=== PATIENT | male | born 1965 ===

== ENCOUNTER 2017-06-12 06:22 | Emergency (ER) | payer MEDICAID ==
[2017-06-12 06:37] VITALS: BP 102/62; PULSE 69; RESP 16; TEMP 97.9; O2SAT 99
[2017-06-12] MEDS ORDERED: Lidocaine 5% Patch TD STA (07:02)
--- NOTE | 2017-06-12 07:40 | ED PDOC ---
HPI: Back Time Seen by Provider: 06/12/17 07:02 Chief Complaint (Nursing): Back Pain Chief Complaint (Provider): Back Pain History Per: Patient History/Exam Limitations: no limitations Onset/Duration Of Symptoms: Days (x1 month) Current Symptoms Are (Timing): Still Present Additional Complaint(s): Pt is a 51 y/o male with a past medical history of human immunodeficiency virus (HIV) who does not take medications for the virus and presents to the emergency department with a lower back pain x1 month. The pain radiates down to the right leg and is a 10 out of 10. Reports he has an appointment with his doctor on Jun 17 to reactivate his care and begin work-up on his health. Of note, patient went to [facility] and had MRI completed of his lower back approx 1 month ago. Doctors told him that he has " bone," so there is a questionable possibility of avascular necrosis. They also informed him that he has fungus in his esophagus (Esophagitis). Aleve helps his pain a little. Past Medical History Reviewed: Historical Data, Nursing Documentation, Vital Signs Vital Signs: Last Vital Signs Temp 97.9 F 06/12/17 06:34 Pulse 69 06/12/17 06:34 Resp 16 06/12/17 06:34 BP 102/62 06/12/17 06:34 Pulse Ox 99 06/12/17 06:34 - Medical History PMH: Back Problems, HIV Other PMH: Esophagitis - Family History Family History: States: No Known Family Hx - Social History Current smoker - smoking cessation education provided: Yes Alcohol: None Drugs: Denies - Home Medications Home Medications: Ambulatory Orders Medication Instructions Recorded Cyclobenzaprine [Cyclobenzaprine 10 mg PO TID #15 tab 06/14/17 HCl] traMADol [Ultram] 1 tab PO TID PRN #10 tab 06/14/17 Ibuprofen [Motrin] 1 tab PO Q8 PRN #30 tab 06/15/17 - Allergies Allergies/Adverse Reactions: Allergies Allergy/AdvReac Type Severity Reaction Status Date / Time No Known Allergies Allergy Verified 06/14/17 10:44 Review of Systems ROS Statement: Except As Marked, All Systems Reviewed And Found Negative Constitutional: Negative for: Fever Gastrointestinal: Negative for: Nausea, Vomiting Musculoskeletal: Positive for: Back Pain (Lower region), Leg Pain (Right) Physical Exam - Reviewed Nursing Documentation Reviewed: Yes Vital Signs Reviewed: Yes - Physical Exam Appears: Positive for: Non-toxic, No Acute Distress Head Exam: Positive for: ATRAUMATIC, NORMAL INSPECTION, NORMOCEPHALIC Skin: Positive for: Normal Color, Warm, Dry Eye Exam: Positive for: Normal appearance Neck: Positive for: Normal, Supple Cardiovascular/Chest: Positive for: Regular Rate, Rhythm. Negative for: Murmur Respiratory: Positive for: Normal Breath Sounds. Negative for: Accessory Muscle Use, Respiratory Distress Gastrointestinal/Abdominal: Positive for: Normal Exam, Bowel Sounds, Soft. Negative for: Tenderness Back: Positive for: Other (Tenderness to the right lower back and to the right hip. Pain with ROM of the right hip.). Negative for: Normal Inspection Extremity: Positive for: Normal ROM, Capillary Refill (Pulses intact.). Negative for: Other (no neurovascular deficits) Neurologic/Psych: Positive for: Alert, Oriented (x3). Negative for: Motor/ Sensory Deficits - ECG O2 Sat by Pulse Oximetry: 99 (RA) Pulse Ox Interpretation: Normal Medical Decision Making Medical Decision Making: Time: 07:02 Initial impression: Possible avascular necrosis (old) causing hip pain vs. musculoskeletal pain Initial plan: --Tylenol 975 mg PO --Motrin 600 mg PO --Lidocaine 5% 1 ea TD --Hip w/ pelvis x-ray --LS Spine x-ray --Reevaluation Time: 07:32 --Valium 5 mg PO Progress note(s): 9:13 AM -- Pt feels better. Will d/c home. Pt with appt with Dr. Zurita next week. Time: 09:14 Upon provider reevaluation patient is feeling better, is medically stable, and requires no further treatment in the ED at this time. Patient will be discharged home with Rx for Motrin and Ultram. Counseling was provided and all questions were answered regarding diagnosis and need for follow up with Dr. Pee Zurita MD. There is agreement to discharge plan. Return if symptoms persist or worsen. Clinical Impression: Back pain Time: 09:33 --Lumbar Spine x-ray FINDINGS: BONES: No evidence of acute compression fracture nor retropulsed fragments. Mild chronic anterior stature loss of the T12 and to a lesser degree L1 segments. . DISC SPACES: Mild degenerative spondylosis noted at the T11-T12 level with mild posterior disc space narrowing L5-S1 level. Small marginal anterior osteophyte formation seen at L3-L4 level. Facet joints also appear slightly hypertrophic L5-S1 through the L3-L4 level decreasing order of severity. OTHER FINDINGS: None. IMPRESSION: No acute fractures. Minor chronic anterior stature loss of the T12 and to a lesser degree L1 segments. Minor degenerative spondylosis Time: 09:35 --Hip x-ray FINDINGS: BONES: No evidence of acute displaced fracture nor dislocation. No definitive radiographic evidence of avascular necrosis however early avascular necrosis cannot be excluded and therefore follow-up MRI recommended. JOINTS: Joint spaces preserved. No significant osteoarthritis SOFT TISSUES: Normal. OTHER FINDINGS: None. IMPRESSION: No evidence of acute displaced fracture nor dislocation. No definitive evidence of avascular necrosis however the possibility of early avascular necrosis cannot be excluded therefore followup MRI recommended. Note that this report was placed in PA review folder for followup. Scribe Attestation: Documented by Karie Sun, acting as a scribe for Joseph Esquivel MD. Provider Scribe Attestation: All medical record entries made by the Scribe were at my direction and personally dictated by me. I have reviewed the chart and agree that the record accurately reflects my personal performance of the history, physical exam, medical decision making, and the department course for this patient. I have also personally directed, reviewed, and agree with the discharge instructions and disposition. Disposition - Clinical Impression Clinical Impression: Back pain - Patient ED Disposition Is Patient to be Admitted: No Counseled Patient/Family Regarding: Studies Performed, Diagnosis, Need For Followup, Rx Given - Disposition Referrals: Pee Zurita MD [Family Provider] - Disposition: Routine/Home Disposition Time: 09:14 Condition: IMPROVED Additional Instructions: Mr. Low, thank you for letting us take care of you today. Return to the ER if your symptoms worsen, or if any problems. Take the medication(s) listed below as prescribed. Follow up with Dr. Mooney next week--you already have an appointment. Instructions: Back Pain (ED) Forms: [employer] ([place]) Print Language: ITALIAN - POA Present On Arrival: None
--- NOTE | 2017-06-12 09:35 | RAD ---
PROCEDURE: Radiographs of the Lumbar Spine. HISTORY: Low back pain COMPARISON: No prior. FINDINGS: BONES: No evidence of acute compression fracture nor retropulsed fragments. Mild chronic anterior stature loss of the T12 and to a lesser degree L1 segments. . DISC SPACES: Mild degenerative spondylosis noted at the T11-T12 level with mild posterior disc space narrowing L5-S1 level. Small marginal anterior osteophyte formation seen at L3-L4 level. Facet joints also appear slightly hypertrophic L5-S1 through the L3-L4 level decreasing order of severity. OTHER FINDINGS: None. IMPRESSION: No acute fractures. Minor chronic anterior stature loss of the T12 and to a lesser degree L1 segments. Minor degenerative spondylosis
--- NOTE | 2017-06-12 09:37 | RAD ---
PROCEDURE: Right Hip Radiographs. HISTORY: Right hip pain; possible avascular necrosis of hip COMPARISON: None. FINDINGS: BONES: No evidence of acute displaced fracture nor dislocation. No definitive radiographic evidence of avascular necrosis however early avascular necrosis cannot be excluded and therefore follow-up MRI recommended. JOINTS: Joint spaces preserved. No significant osteoarthritis SOFT TISSUES: Normal. OTHER FINDINGS: None. IMPRESSION: No evidence of acute displaced fracture nor dislocation. No definitive evidence of avascular necrosis however the possibility of early avascular necrosis cannot be excluded therefore followup MRI recommended. Note that this report was placed in PA review folder for followup.
== END 2017-06-12 09:30 | disposition home or self-care (01) ==
LOC: H.ER 06:22
DX: M54.9 Dorsalgia, unspecified (principal)

== ENCOUNTER 2017-06-14 09:45 | Emergency (ER) | payer MEDICAID ==
[2017-06-14 10:47] VITALS: TEMP 98.2
--- NOTE | 2017-06-14 11:18 | ED PDOC ---
HPI: Back Time Seen by Provider: 06/14/17 10:55 Chief Complaint (Nursing): Back Pain History Per: Patient (was seen in the ED [address] Esquivel. He was discharged with ibuprofen and tramadol. He states that he lost his meds on the bus and needs refill. He has an appointment with Dr. Zurita in the ciinic in 3 days.) History/Exam Limitations: no limitations Current Symptoms Are (Timing): Still Present Past Medical History Reviewed: Historical Data, Nursing Documentation, Vital Signs Vital Signs: Last Vital Signs Temp 98.2 F 06/14/17 10:44 Pulse 71 06/14/17 10:44 Resp 18 06/14/17 10:44 BP 111/64 06/14/17 10:44 Pulse Ox 100 06/14/17 10:44 - Medical History PMH: Back Problems, HIV - Family History Family History: States: Unknown Family Hx - Home Medications Home Medications: Ambulatory Orders Medication Instructions Recorded Cyclobenzaprine [Cyclobenzaprine 10 mg PO TID #15 tab 06/14/17 HCl] Ibuprofen [Motrin] 1 tab PO Q8 PRN #30 tab 06/14/17 traMADol [Ultram] 1 tab PO TID PRN #10 tab 06/14/17 - Allergies Allergies/Adverse Reactions: Allergies Allergy/AdvReac Type Severity Reaction Status Date / Time No Known Allergies Allergy Verified 06/14/17 10:44 Review of Systems ROS Statement: Except As Marked, All Systems Reviewed And Found Negative Physical Exam - Reviewed Nursing Documentation Reviewed: Yes Vital Signs Reviewed: Yes - Physical Exam Appears: Positive for: Well, Non-toxic, No Acute Distress Head Exam: Positive for: ATRAUMATIC, NORMAL INSPECTION, NORMOCEPHALIC Skin: Positive for: Normal Color, Warm, DRY Eye Exam: Positive for: EOMI, Normal appearance, PERRL ENT: Positive for: Normal ENT Inspection Neck: Positive for: Normal, Painless ROM Cardiovascular/Chest: Positive for: Regular Rate, Rhythm Respiratory: Positive for: CNT, Normal Breath Sounds Gastrointestinal/Abdominal: Positive for: Normal Exam, Bowel Sounds, Soft Back: Positive for: Normal Inspection, Other (pain on ROM). Negative for: Vertebral Tenderness Extremity: Positive for: Normal ROM Neurologic/Psych: Positive for: Alert, Oriented - ECG O2 Sat by Pulse Oximetry: 100 Medical Decision Making Medical Decision Making: VALERIE MACHINE CAGE [employer]KER reviewed. He was only prescribe 10 tabs. Will refill meds and discharge and add muscle relaxant Disposition - Clinical Impression Clinical Impression: Acute back pain - Patient ED Disposition Is Patient to be Admitted: No Doctor Will See Patient In The: Office Counseled Patient/Family Regarding: Diagnosis, Need For Followup, Rx Given - Disposition Referrals: Pee Zurita MD [Family Provider] - Disposition: Routine/Home Disposition Time: 11:00 Condition: STABLE Prescriptions: Cyclobenzaprine [Cyclobenzaprine HCl] 10 mg PO TID #15 tab Ibuprofen [Motrin] 1 tab PO Q8 PRN #30 tab PRN Reason: Pain, Moderate (4-7) traMADol [Ultram] 1 tab PO TID PRN #10 tab PRN Reason: Pain, Severe (8-10) Instructions: Back Pain (ED) Forms: [facility] (Yoruba) - POA Present On Arrival: None
[2017-06-14 11:45] VITALS: BP 134/75; PULSE 75; RESP 16; O2SAT 98
== END 2017-06-14 11:45 | disposition home or self-care (01) ==
LOC: H.ER 09:45
DX: M54.9 Dorsalgia, unspecified (principal); B20 Human immunodeficiency virus [HIV] disease; Z76.0 Encounter for issue of repeat prescription

== ENCOUNTER 2017-06-15 09:05 | Emergency (ER) | payer MEDICAID ==
[2017-06-15 09:10] VITALS: BP 106/63; PULSE 78; TEMP 97; O2SAT 100
[2017-06-15 09:11] VITALS: BMI 23.1
[2017-06-15] MEDS ORDERED: Oxycodone/Acetaminophen 5/325 mg Tab PO ONE (09:27)
[2017-06-15] MEDS ORDERED: Oxycodone/Acetaminophen 5/325 mg Tab ONE (09:40)
--- NOTE | 2017-06-15 10:24 | ED PDOC ---
HPI: Back Time Seen by Provider: 06/15/17 09:16 Chief Complaint (Nursing): Back Pain Chief Complaint (Provider): Back Pain History Per: Patient History/Exam Limitations: no limitations Onset/Duration Of Symptoms: Days (x30) Current Symptoms Are (Timing): Still Present Additional Complaint(s): Enrike Low is a 51 year old male with a past medical history of HIV presenting to the ED for and evaluation of chronic lower back pain occurring for 1 month. The patient states his back pain worsens with ambulation and radiates to his right upper leg. He denies trauma, fever, weakness, numbness, urinary problems, any history of herniated discs, any history of cancer, or any IV drug use. The patient has been seen yesterday and three days ago in this ED for the same complaint. On his first visit, the patient was prescribed Ibuprofen and Flexeril then claimed that he lost these prescriptions. On his second visit, the patient was prescribed Tramadol in addition to Ibuprofen and Flexeril and now claims that he lost these prescriptions. He denies any other medical complaints. PMD: Pee Messina MD Past Medical History Reviewed: Historical Data, Nursing Documentation, Vital Signs Vital Signs: Last Vital Signs Temp 97 F L 06/15/17 09:09 Pulse 78 06/15/17 09:09 Resp BP 106/63 06/15/17 09:09 Pulse Ox 100 06/15/17 09:09 - Medical History PMH: Back Problems, HIV - Family History Family History: States: Unknown Family Hx - Social History Current smoker - smoking cessation education provided: Yes Alcohol: Other Drugs: Denies - Home Medications Home Medications: Ambulatory Orders Medication Instructions Recorded Cyclobenzaprine [Cyclobenzaprine 10 mg PO TID #15 tab 06/14/17 HCl] traMADol [Ultram] 1 tab PO TID PRN #10 tab 06/14/17 Ibuprofen [Motrin] 1 tab PO Q8 PRN #30 tab 06/15/17 - Allergies Allergies/Adverse Reactions: Allergies Allergy/AdvReac Type Severity Reaction Status Date / Time No Known Allergies Allergy Verified 06/14/17 10:44 Review of Systems ROS Statement: Except As Marked, All Systems Reviewed And Found Negative Musculoskeletal: Positive for: Back Pain (radiating to right upper leg ) Physical Exam - Reviewed Nursing Documentation Reviewed: Yes Vital Signs Reviewed: Yes - Physical Exam Appears: Positive for: Well, Non-toxic, No Acute Distress Head Exam: Positive for: ATRAUMATIC, NORMAL INSPECTION, NORMOCEPHALIC Skin: Positive for: Normal Color, Warm, Dry Eye Exam: Positive for: EOMI, Normal appearance, PERRL Neck: Positive for: Normal, Painless ROM, Supple Cardiovascular/Chest: Positive for: Regular Rate, Rhythm, Chest Non Tender Respiratory: Positive for: Normal Breath Sounds. Negative for: Respiratory Distress Gastrointestinal/Abdominal: Positive for: Normal Exam, Bowel Sounds, Soft. Negative for: Tenderness Back: Positive for: Other (paraspinal tenderness in lower back) Extremity: Positive for: Normal ROM, Other (SLR positive). Negative for: Deformity Neurologic/Psych: Positive for: Alert, event sales manager II-XII (intact), Oriented, Gait ( steady). Negative for: Motor/Sensory Deficits - ECG O2 Sat by Pulse Oximetry: 100 (RA) Pulse Ox Interpretation: Normal - Progress Re-evaluation Time: 11:10 Condition: Re-examined, Improved Medical Decision Making Medical Decision Making: Time: 09:16 Impression: Back pain of chronic character Plan: * Percocet 5/325 mg Tab 1 tab PO * Toradol 30 mg IM * Reevaluation According to pts charts, the pt had an X-ray LS spine done 3 days prior to arrival resulting in no acute findings. Pt states he had an MRI done at [facility] within the last month and is not sure about his results. Scribe Attestation: Documented by Ya Bowling, acting as a scribe for Porsche Holt MD. Provider Scribe Attestation: All medical record entries made by the Scribe were at my direction and personally dictated by me. I have reviewed the chart and agree that the record accurately reflects my personal performance of the history, physical exam, medical decision making, and the department course for this patient. I have also personally directed, reviewed, and agree with the discharge instructions and disposition. Disposition - Clinical Impression Clinical Impression: Back pain Doctor Will See Patient In The: Office Counseled Patient/Family Regarding: Studies Performed, Diagnosis, Need For Followup - Disposition Referrals: Pee Messina MD [Family Provider] - Disposition: Routine/Home Disposition Time: 11:00 Condition: IMPROVED Additional Instructions: Take your medications as instructed. Follow up with your appointment with Dr Messina in 2 days. Prescriptions: Ibuprofen [Motrin] 1 tab PO Q8 PRN #30 tab PRN Reason: Pain, Moderate (4-7) Instructions: Back Pain (ED)
== END 2017-06-15 11:29 | disposition home or self-care (01) ==
LOC: H.ER 09:05
DX: M54.9 Dorsalgia, unspecified (principal); Z21 Asymptomatic human immunodeficiency virus [HIV] infection status
CPT/HCPCS: 96372; 99282; J1885

== ENCOUNTER 2017-06-23 06:58 | Emergency (ER) | payer MEDICAID ==
[2017-06-23 06:59] VITALS: BMI 23.1
[2017-06-23 07:33] VITALS: BP 126/87; PULSE 93; RESP 18; TEMP 98.2; O2SAT 100
--- NOTE | 2017-06-23 08:47 | ED PDOC ---
HPI: Back Time Seen by Provider: 06/23/17 08:04 Chief Complaint (Nursing): Lower Extremity Problem/Injury History Per: Patient History/Exam Limitations: no limitations Onset/Duration Of Symptoms: Gradual (3 to 4 months), Worse Since (yesterday) Current Symptoms Are (Timing): Still Present Quality Of Discomfort: Dull, Aching Severity: Mild Previous Symptoms: Back Pain Associated Symptoms: None Exacerbating Factor(s): Movement Additional History Per: Patient Additional Complaint(s): pt states right back pain radiating from right thigh up to right lower back for past couple of months. worse with movement and better with rest, no leg n/t/w. no bowel or bladder retention or incontinence. pt seen here last week 3 times aweith a neg xray, seen at [facility] last month and had a mri with " bone". sx worsening with mild relief with flexeril. Past Medical History Reviewed: Historical Data, Nursing Documentation, Vital Signs Vital Signs: Last Vital Signs Temp 98.2 F 06/23/17 07:27 Pulse 93 H 06/23/17 07:27 Resp 18 06/23/17 07:27 BP 126/87 06/23/17 07:27 Pulse Ox 100 06/23/17 07:27 - Medical History PMH: Back Problems, HIV (042.9) Denies: Chronic Kidney Disease - Family History Family History: States: Unknown Family Hx - Living Arrangements Living Arrangements: With Family - Social History Current smoker - smoking cessation education provided: No - Home Medications Home Medications: Ambulatory Orders Medication Instructions Recorded Cyclobenzaprine [Cyclobenzaprine 10 mg PO TID #15 tab 06/14/17 HCl] traMADol [Ultram] 1 tab PO TID PRN #10 tab 06/14/17 Ibuprofen [Motrin] 1 tab PO Q8 PRN #30 tab 06/15/17 Cyclobenzaprine [Flexeril] 5 mg PO TID PRN #20 tab 06/23/17 - Allergies Allergies/Adverse Reactions: Allergies Allergy/AdvReac Type Severity Reaction Status Date / Time No Known Allergies Allergy Verified 06/14/17 10:44 Review of Systems ROS Statement: Except As Marked, All Systems Reviewed And Found Negative Constitutional: Negative for: Fever, Chills Cardiovascular: Negative for: Chest Pain, Palpitations Respiratory: Negative for: Cough, Shortness of Breath Gastrointestinal: Negative for: Nausea, Vomiting, Abdominal Pain Genitourinary Male: Negative for: Dysuria, Frequency Musculoskeletal: Positive for: Back Pain. Negative for: Neck Pain, Hand Pain, Leg Pain Neurological: Negative for: Weakness, Numbness, Confusion, Altered Mental Status , Headache, Dizziness Physical Exam - Reviewed Nursing Documentation Reviewed: Yes Vital Signs Reviewed: Yes - Physical Exam Appears: Positive for: Uncomfortable Head Exam: Positive for: ATRAUMATIC, NORMAL INSPECTION, NORMOCEPHALIC Skin: Positive for: Normal Color, Warm, Dry Eye Exam: Positive for: Normal appearance Neck: Positive for: Normal, Painless ROM, Supple. Negative for: Decreased ROM, Limited ROM, Trachea Midline, Pain On Movement Of Neck Cardiovascular/Chest: Positive for: Regular Rate, Rhythm, Chest Non Tender. Negative for: Edema, Gallop, Murmur, Bradycardia, Tachycardia Respiratory: Positive for: Normal Breath Sounds. Negative for: Decreased Breath Sounds, Accessory Muscle Use, Crackles, Rales, Rhonchi, Stridor, Wheezing , Respiratory Distress Pulses-Post. Tibialis (L): 2+ Pulses-Post. Tibialis (R): 2+ Gastrointestinal/Abdominal: Positive for: Normal Exam, Bowel Sounds, Soft. Negative for: Tenderness Back: Positive for: Normal Inspection. Negative for: L CVA Tenderness, R CVA Tenderness Extremity: Positive for: Normal ROM. Negative for: Tenderness, Pedal Edema, Calf Tenderness, Deformity, Swelling Neurologic/Psych: Positive for: Alert, construction checker II-XII, Oriented, Mood/Affect (calm) , Other (+ ehl bl nml ankle reflexes, no saddles anesthesia). Negative for: Motor/Sensory Deficits - ECG O2 Sat by Pulse Oximetry: 100 Pulse Ox Interpretation: Normal - Progress ED Course And Treament: ct scan with mild degen mild to moderate spinal stenosis. sx improved with flexeril advise close f/u with pmd and in medical clinic. pt leaves ambulatory and in good spirits. Re-evaluation Time: 09:20 Condition: Improved Disposition - Clinical Impression Clinical Impression: Back pain - Patient ED Disposition Is Patient to be Admitted: No Counseled Patient/Family Regarding: Studies Performed, Diagnosis, Need For Followup - Disposition Referrals: Pee Messina MD [Primary Care Provider] - (2 to 3 days) Sona Graf MD [Staff Provider] - Disposition: Routine/Home Disposition Time: 09:20 Condition: GOOD Prescriptions: Cyclobenzaprine [Flexeril] 5 mg PO TID PRN #20 tab PRN Reason: Pain, Moderate (4-7) Instructions: Chronic Back Pain (ED) Forms: [facility] (Setswana)
--- NOTE | 2017-06-23 09:52 | CT ---
PROCEDURE: CT Lumbar Spine without contrast HISTORY: back pain neg xray recently COMPARISON: Lumbar spine radiograph 06/12/2017. TECHNIQUE: Axial computed tomography images were obtained of the lumbar spine without the use of intravenous contrast. Coronal and sagittal reformatted images were created and reviewed. Radiation dose: Total exam DLP = 412 mGy-cm. This CT exam was performed using one or more of the following dose reduction techniques: Automated exposure control, adjustment of the mA and/or kV according to patient size, and/or use of iterative reconstruction technique. FINDINGS: VERTEBRAE: Normal lumbar curvature is appreciated there is no displaced fracture or spondylolisthesis identified. No suspicious lytic or blastic change identified throughout the lumbar spine. Interval disc spaces are somewhat diminished in height L3-4 and L5-S1 are otherwise normal in height as well as vertebral bodies throughout. Prevertebral paraspinal soft tissues appear diffusely unremarkable. . DISCS/SPINAL CANAL/NEURAL FORAMINA: L1-2: Unremarkable. L2-3: Limited generalized disc bulge is appreciated with lateral recess stenosis resulting due to mild facet joint degenerative arthropathy in combination with disc bulging. Mild bilateral neural foraminal stenosis appreciated. L3-4: A generalized disc bulge combines with facet joint arthropathy to cause a mild to moderate central canal stenosis and moderate bilateral neural foraminal stenoses. L4-5: In additional generalized disc bulge combines with facet joint arthropathy to cause a mild central canal stenosis concentrated at the lateral recesses. Mild bilateral neural foraminal stenosis also identified. L5-S1: A moderate generalized disc bulge is appreciated with possible central disc protrusion inverting the ventral thecal sac without prominent stenosis. No large disc herniation appreciated throughout the exam. PARASPINAL SOFT TISSUES: A small right renal cyst is identified incidentally. OTHER FINDINGS: None. IMPRESSION: Multilevel degenerative central canal stenoses are identified seen worst at the L3-4 level where [id number] central canal stenosis results. No large disc herniation identified. A small center due disc protrusion may overlie generalized disc bulge at L5-S1 without significant stenosis resulting. Further characterization by MRI can provided if clinically warranted.
== END 2017-06-23 10:12 | disposition home or self-care (01) ==
LOC: H.ER 06:58
DX: M54.5 Low back pain (principal); M48.06 Spinal stenosis, lumbar region; B20 Human immunodeficiency virus [HIV] disease

== ENCOUNTER 2018-04-26 10:01 | Inpatient (IN) | payer MEDICAID ==
[2018-04-26 10:01] VITALS: BMI 23.1
[2018-04-26 10:30] VITALS: O2SAT 100
--- NOTE | 2018-04-26 11:10 | RAD ---
PROCEDURE: CHEST RADIOGRAPH, 1 VIEW HISTORY: SOB COMPARISON: None available. FINDINGS: LUNGS: Clear. PLEURA: No pneumothorax or pleural fluid seen. CARDIOVASCULAR: Normal. OSSEOUS STRUCTURES: No significant abnormalities. VISUALIZED UPPER ABDOMEN: Normal. OTHER FINDINGS: None. IMPRESSION: No focal airspace opacity. Please note that chest radiographs have low sensitivity for small pulmonary nodules. If indicated, chest CT should be obtained.
[2018-04-26 12:01] LABS: BASO % 0.3 % (0.0-2.0); EOS # 0.1 K/uL (0.0-0.7); EOS % 2.7 % (0.0-4.0); HEMOGLOBIN 12.7 g/dL (12.0-18.0); LYMPH # 0.5 K/uL (1.0-4.3); LYMPH % 16.1 % (20.0-40.0); MEAN CELL VOLUME 96.9 fl (80.0-94.0); MEAN CORPUSCULAR HEMOGLOBIN 33.3 pg (27.0-31.0); MEAN CORPUSCULAR HGB CONC 34.3 g/dL (33.0-37.0); MEAN PLATELET VOLUME 7.8 fl (7.2-11.7); MONO # 0.6 K/uL (0.0-0.8); MONO % 17.7 % (0.0-10.0); NEUT % 63.2 % (50.0-75.0); RBC 3.81 Mil/uL (4.40-5.90); RED CELL DISTRIBUTION WIDTH 13.6 % (11.5-14.5); WHITE BLOOD COUNT 3.2 K/uL (4.8-10.8)
--- NOTE | 2018-04-26 12:05 | ED PDOC ---
HPI: Psych/Substance Abuse Time Seen by Provider: 04/26/18 10:34 Chief Complaint (Nursing): Shortness Of Breath Chief Complaint (Provider): Psychiatric Evaluation History Per: Patient History/Exam Limitations: no limitations Onset/Duration Of Symptoms: Days Current Symptoms Are (Timing): Still Present Additional Complaint(s): 52 year old male with a history of pneumonia, HIV, depression and anxiety presents to the ED for psychiatric evaluation and shortness of breath with chills. Patient reports that he discontinued his HIV medications 8 months ago. He states he has been stressed because of his family and friends which has caused him to be unable to "eat or sleep well for months". Patient has also lost weight (160 to 133). He denies fever, cough, chest pain, abdominal pain, vomiting, SI, HI, or any other medical complaints. PMD: Dr. Messina Past Medical History Reviewed: Historical Data, Nursing Documentation, Vital Signs Vital Signs: Last Vital Signs Temp 98.1 F 04/26/18 10:29 Pulse 79 04/26/18 10:29 Resp 20 04/26/18 10:29 BP 104/69 04/26/18 10:29 Pulse Ox 100 04/26/18 10:29 - Medical History PMH: Back Problems, HIV (042.9) Denies: Chronic Kidney Disease - Surgical History Surgical History: No Surg Hx - Family History Family History: States: Unknown Family Hx - Home Medications Home Medications: Ambulatory Orders Medication Instructions Recorded Abacavir Sulfate/Lamivudine 1 tab PO DAILY 04/26/18 [Abacavir-Lamivudine 600-300 mg] Azithromycin [Zithromax] 1,200 mg PO SUN 04/26/18 Dolutegravir Sodium [Tivicay] 50 mg PO DAILY 04/26/18 Sulfamethoxazole/Trimethoprim 1 tab PO DAILY 04/26/18 [Bactrim DS Tab] - Allergies Allergies/Adverse Reactions: Allergies Allergy/AdvReac Type Severity Reaction Status Date / Time No Known Allergies Allergy Verified 04/26/18 10:36 Review of Systems ROS Statement: Except As Marked, All Systems Reviewed And Found Negative Psych: Positive for: Anxiety, Depression. Negative for: Suicidal ideation Physical Exam - Reviewed Nursing Documentation Reviewed: Yes Vital Signs Reviewed: Yes - Physical Exam Comments: GENERAL APPEARANCE: Patient is awake, alert, oriented x 3, in no acute distress. Speaking in full sentences, breathing easy and unlabored. SKIN: Warm, dry; (-) cyanosis HEAD: (-) scalp swelling, (-) scalp tenderness. EYES: (-) conjunctival pallor, (-) scleral icterus, (-) nystagmus. ENMT: Mucous membranes moist. Airway patent: (-) stridor. NECK: (-) tenderness, (-) stiffness, (-) lymphadenopathy. HEART AND CARDIOVASCULAR: (-) irregularity; (-) murmur, (-) gallop. CHEST AND RESPIRATORY: (-) rales, (-) rhonchi, (-) wheezes; breath sounds equal. ABDOMEN: Soft, (-) distention, (-) tenderness, (-) guarding. NEURO AND PSYCH: Mental status as above. Affect: flat detective private eye: Intact. Pupils equal and reactive; EOMI; (-) facial asymmetry ; tongue and uvula midline. Strength symmetric. - Laboratory Results Result Diagrams: 04/26/18 11:45 04/26/18 11:45 - ECG O2 Sat by Pulse Oximetry: 100 (RA) Pulse Ox Interpretation: Normal Medical Decision Making Medical Decision Making: Time: 10:40 Initial Plan: --EKG --Alcohol serum --CMP --Urine drug screen --Crisis evaluation --CBC with differentials --CXR --Urinalysis EKG : NSR at 68 bpm, no acute ST changes, as read by CLARY CXR : NAD, as read by CLARY Labs reviewed : WBC 3.2 Patient is medically cleared for psych evaluation. Patient seen and evaluated by crisis. After crisis evaluation, decision made for inpt psych admission as per Dr. Pyle for depression. Diagnostic results d/w the patient. Scribe Attestation: Documented by Robina Bowling, acting as a scribe for Josiane Blair PA-C Provider Scribe Attestation: All medical record entries made by the Scribe were at my direction and personally dictated by me. I have reviewed the chart and agree that the record accurately reflects my personal performance of the history, physical exam, medical decision making, and the department course for this patient. I have also personally directed, reviewed, and agree with the discharge instructions and disposition. Disposition - Clinical Impression Clinical Impression: Depression, Leukopenia, HIV (human immunodeficiency virus infection) - Patient ED Disposition Is Patient to be Admitted: Yes Counseled Patient/Family Regarding: Studies Performed, Diagnosis - Disposition Disposition Time: 12:30 Condition: STABLE - Pt Status Changed To: Hospital Disposition Of: Inpatient - Admit Certification Admit to Inpatient:: After my assessment, the patient will require hospitalization for at least two midnights. This is because of the severity of symptoms shown, intensity of services needed, and/or the medical risk in this patient being treated as an outpatient. - PA / [employer] / Resident Statement / has reviewed & agrees with the documentation as recorded.
[2018-04-26 12:12] LABS: ALB/GLOB RATIO 0.9 (1.0-2.1); ALBUMIN 3.9 g/dL (3.5-5.0); ALT/SGPT 28 U/L (21-72); AST/SGOT 34 U/L (17-59); BLOOD UREA NITROGEN 12 mg/dl (9-20); GFR AFRICAN-AMERICAN > 60; GFR NON-AFRICAN AMERICAN > 60
[2018-04-26 13:01] LABS: SQUAMOUS EPITHIAL < 1 /hpf (0-5); URINE BACTERIA RARE (<OCC); URINE BILIRUBIN NEGATIVE (NEGATIVE); URINE BLOOD NEGATIVE (NEGATIVE); URINE CLARITY SLIGHTY-CLOUDY (Clear); URINE COLOR YELLOW (YELLOW); URINE GLUCOSE (UA) NEG (Normal); URINE LEUKOCYTE ESTERASE NEG Leu/uL (Negative); URINE PROTEIN NEGATIVE (NEGATIVE); URINE UROBILINOGEN 0.2-1.0 mg/dL (0.2-1.0)
[2018-04-26] MEDS ORDERED: Magnesium Hydroxide Susp 30 ml UD PO PRN (13:10)
[2018-04-26] MEDS ORDERED: DiphenhydrAMINE 50 mg/ml Inj IM PRN (13:10)
[2018-04-26 13:20] LABS: BARBITURATES, UR NEGATIVE (NEGATIVE); BENZODIAZEPINES, UR NEGATIVE (NEGATIVE); OPIATES, UR NEGATIVE (NEGATIVE); PHENCYCLIDINE, UR NEGATIVE (NEGATIVE)
--- NOTE | 2018-04-26 17:25 | PCM.BM ---
Addendum entered and electronically signed by Aziza Santacruz MSW 05/05/18 15: 53: Treatment Plan Review - Problem Hopelessness/Helplessness Time Initiated: 17:00 Substance Use Time Initiated: 17:00 - Discharge / Continuing Care Discharge to:: Home Behavioral Health Services: Outpatient therapy (Bjorn Macedo [facility] ; [facility]) Health Needs: Doctor appointments, Medications/Rx, Other ([facility] ; [facility]) Original Note: <Farhad Gandhi - Last Filed: 04/26/18 17:23> Treatment Plan Problems - Problems identified on initial assessmt Hopelessness/Helplessness Date Initiated: 04/26/18 Time Initiated: 17:00 Assessment reference: NA Status: Active Substance Use Date Initiated: 04/26/18 Time Initiated: 17:00 Assessment reference: NA Status: Active Treatment assets and liabiliti Patient Assests: adapts well, cooperative, resourceful, ADL independent Patient Liabilities: poor support system, substance abuse, medical problems - Milieu Protocol Maintain good personal hygiene: every shift Encourage regular showers, every shift Remind patient to perform daily oral care, every shift Assist patient to perform ADL's Maintain personal safety: every shift Educate patient to report safety concerns to staff, every shift Monitor environment for contraband/sharps Medication safety: Monitor for expected outcome, potential side effects: every shift, Assess barriers to learning: every shift, Assess readiness for medication education: every shift <Denisha Pyle - Last Filed: 04/28/18 11:21> - Diagnosis (1) Substance induced mood disorder Status: Acute Interventions: Medication management, Individual and group therapy, Psychoeducation 04/28/18 11:21 (2) Cocaine abuse Status: Acute Interventions: Psychoeducation, Motivational interviewing 04/28/18 11:22 <Aziza Santacruz - Last Filed: 05/05/18 15:52> Treatment assets and liabiliti Patient Assests: cooperative (superficially cooperative-requires redirection and significant engagement from staff to actively participate in treatment), self-reliant, ADL independent, negotiates basic needs Patient Liabilities: live alone, poor support system, relationship conflicts, substance abuse, medical problems (inconsistantly adherent with HIV medications) Family Contact Family involvement: Patient does not wish Family/SO involvement Family contact: Patient declines to allow family contact at present - Outside Agency Agency 1 Agency contact name: TYRA Merritt) Agency contact number: ([phone]) - Goals for Treatment Patient goals for treatment: Patient to continue stabilization on 3NP through medication management and group/supportive therapy to address sxs of depression and eliminate SI. Patient to be encouraged to attend groups regularly to promote self-awareness, sobriety, and improve insight, compliance, coping skills and self-esteem. Patient to be provided with referral for appropriate level of aftercare to reduce risk of future hospitalizations and ensure safety in the community. Discharge/Continuing Care - Education Needs Education Needs: Patient Medication, Patient Diagnosis/Disease Process, Patient Coping Skills, Patient Anger Management skills, Patient Community resources, Patient Aftercare Safety Plan - Discharge Discharge Criteria: Tolerates medication w/o severe side effects, Free of Suicidal thoughts, Free of agitation, Normal sleep pattern, Ability to care for self, Reduction of target symptoms Discharge to:: Home - Treatment Team Participation Patient/Family/SO Statement: 04/28/18 12:34 Patient was invited to attend tx team this morning to discuss progress on 3NP, tx goals and discharge plan. Patient refused to attend despite max. prompts and engagement from staff. Pt. opted to remain in bed and responded to invitation with "This is why I signed that 48 hour notice." Patient to be seen in team at later time. Discussed with Family/SO: No Was Patient/Family/SO present at Treatment Team Meeting: No <Tracy Mcpherson - Last Filed: 05/06/18 09:54> - Diagnosis (1) Depression Status: Acute Interventions: psychotherapy, pharmacotherapy 05/06/18 09:53
--- NOTE | 2018-04-26 17:35 | PCM.PSYCH ---
Initial Psychiatric Evaluation - Initial Psychiatric Evaluation Chief Complaint (in patient's own words): came to emergency room seeking medical help because of concerns about decreased wt, decreased sleep, mulitple family stressors, fleeting thoughts without plan Patient's Reaction to Hospitalization: pt initially signed in voluntarily in emergency room upon arrival to [facility] pt requested to sign 48 hour notice as did not believe required psychiatric care. reports that given his health, multiple losses of friends at times would never take his life has never tried "only God can decide that". History of Present Illness and Precipitating Events: pt presented to [address] [facility] after self referral for concerns about decreased weight, decreased sleep, decreased appetite, stopping antiretroviral therapy (art's) approx 8 months ago-got tired taking meds wanted to take a break , was not admittedly an attempt to harmself. pt is pt of [facility]-last seen 07/[address] Zurita. pt 's last reported weight in 07/2017 was 151 lbs, today was 130.5lbs. pt is noted to have utox positive for cocaine. pt received instruction from primary staff as to significance of 48hour notice including possible screening by [facility] for possible involuntary commitment. pt was explained that [facility] has a grievance procedure and that a call center support representative from the psychiatric emergency workers from [facility] er would be up to discuss pt's reported experiences in er. pt was verbally agreeable to this plan. Current Medications: Active Medications Generic Name Dose Route Start Last Admin Trade Name Freq PRN Reason Stop Dose Admin Acetaminophen 650 mg 04/26/18 13:10 Tylenol 325mg Tab PO Q4 PRN Pain, moderate (4-7) Al Hydrox/Mg Hydrox/Simethicone 30 ml 04/26/18 13:10 Maalox Plus 30 Ml PO Q4 PRN Dyspepsia Diphenhydramine HCl 50 mg 04/26/18 13:10 Benadryl IM Q6 PRN Extrapyramidal S/S Unable PO Diphenhydramine HCl 50 mg 04/26/18 13:10 Benadryl PO Q6 PRN Extrapyramidal Symptoms Haloperidol 5 mg 04/26/18 13:10 Haldol PO Q4 PRN Agitation Haloperidol Lactate 5 mg 04/26/18 13:10 Haldol IM Q4 PRN Agitation, Unable to Take PO Lorazepam 2 mg 04/26/18 13:10 Ativan IM Q4 PRN Anxiety/Agitation,Unable PO Lorazepam 2 mg 04/26/18 13:10 Ativan PO Q4 PRN Anxiety/Agitation Magnesium Hydroxide 30 ml 04/26/18 13:10 Milk Of Magnesia PO HS PRN Constipation Past Psychiatric History - Past Psychiatric History Prior Professional Help: opd for depression Prior Psychiatric Treatment: [facility] History of ETOH/Drug Use: cocaine utox + History of Family Illness: denies Pertinent Medical Hx (Current Medical&Sleep Prob, Allergies): Allergies Allergy/AdvReac Type Severity Reaction Status Date / Time No Known Allergies Allergy Verified 04/26/18 10:36 Abacavir Sulfate/Lamivudine [Abacavir-Lamivudine 600-300 mg] 1 tab PO DAILY 07/06 Azithromycin [Zithromax] 1,200 mg PO SUN 04/26/18 Dolutegravir Sodium [Tivicay] 50 mg PO DAILY 04/26/18 Sulfamethoxazole/Trimethoprim [Bactrim DS Tab] 1 tab PO DAILY 04/26/18 Review of Systems - Review of Systems Review of Systems: pt is being treated at [facility]-seen by dr zurita, last seen july 2017 -hx of intermittent adherence pt team at [facility] - Constitutional Additional comments: decrease appetite - Respiratory Additional comments: has presented to er with sob cxr negative denies current sob fevers chills sweats diarrhea - Gastrointestinal Additional comments: intermittent constipation - Musculoskeletal Musculoskeletal: Muscle Weakness - Psychiatric Psychiatric: Abnormal Sleep Pattern, Irritability Additional comments: reports fleeting suicidal ideations as fleeting when at times overwhelmed denies any desire past or current to harm self Mental Status Examination - Affect Affect: Broad - Motor Activity Additional comments: some psychomotor excitation, change in position maintenance, some redirection with conversation as at times would over speak staff-was redirectable - Reliability in Providing Information Reliability in Providing Information: Fair - Speech Speech: Organized - Mood Additional comments: irritable at times - Formal Thought Process Formal Thought Process: No Impairment - Obsessions/Compulsions Obsessions: No Compulsions: No - Cognitive Functions Orientation: Person, Place, Situation, Time Sensorium: Alert Attention/Concentration: Attentive Judgement: Intact, as evidence by: Insight regarding need for hospitalization - Risk Risk: Diminished functioning Additional comments: related to possible underlying medical status related to reported 30 lbs weight loss over past 8 months - Strength & Assets Inventory Strength & Assets Inventory: Intelligence (questionable understanding of admission to psychiatry vs medicine) DSM 5 DX - DSM 5 DSM 5 Diagnosis: substance induced mood disorder b20 decreased weight non adherence with ART's Substance use: cocaine active - Recommended/Plan of Treatment Treatment Recommendations and Plan of Treatment: inpt milieu per attending vital signs and clinical observation per protocol and per clinical status prns per unit protocol family practice consult related to hx. of B20 and ART's pt received explaination from team related to 48 hour notice: up to 48 hours to ascertain if safe to discharge pt, if before 48 hrs (not later than 48hours) team must make clinical decision to have client evaluated by [facility] for possible involuntary commitment pt received explaination as to [facility] grievance procedure-call center support representative from psych crisis up to see pt at this time if medically necessary and pt psychiatrically stable pt may be transferred to medical floor Projected ELOS: 5-7 days Prognosis: guards Discharge Plan and Discharge Criteria: safety - Smoking Cessation Smoking Cessation Initiated: No Reason for not providing: pt defers
[2018-04-26] MEDS: Alum-Mag Hydrox-Simethicone Susp (30 mL) PO PRN ×2 (18:03→22:35)
--- NOTE | 2018-04-26 20:06 | CP.PCM.CON ---
History of Present Illness - History of Present Illness History of Present Illness: Family Medicine Consult note 52 y/o male with PMHx of HIV infection, Depression, anxiety presenyts to ED seeking medical help because of concerns about decreased weight loss, poor appetite, decreased sleep, multiple family stressors, fleeting thoughts without plan. Last time seen by Dr. Cervantes was on 07/27/17. Patient lost f/u , and has not been taken his HIV meds( ART) or any prophylaxis treatment for 8 months. He states that he found himself asking " why do I have to take this medications", lack of motivation in his life. But he decided to resume his HIV management because since January he has been having poor appetite, unintentional weight loss. During the interview mentioned a lot of financial issues. Denies fevers, chills, chest pain, SOB, cough, night sweats, abdominal pain, diarrheas, constipation, blood in urine of stools. Denies recent travel. Denies illicit drugs use, however tested positive for cocaine on admission. Reports wants medications for constipation, however reports he has daily bowel movements, but Would like to have 2 BMs daily. PMD: Dr. Zurita at [facility]. last seen on 07/27/18 Allergies: NKDA Social: smoker since age 14, unclear about how much he smokes, patient does not answer questions clearly. Etoh social. Denies illicits drugs. Positive for cocaine in Urine toxicology Review of Systems - Review of Systems All systems: reviewed and no additional remarkable complaints except (as per HPI ) Past Patient History - Past Social History Smoking Status: Heavy Smoker > 10 Cigarettes Daily - CARDIAC Hx Cardiac Disorders: No - PULMONARY Hx Tuberculosis: No - NEUROLOGICAL HX Cerebrovascular Accident: No Hx Seizures: No - HEENT Hx HEENT Problems: No - RENAL Hx Chronic Kidney Disease: No - ENDOCRINE/METABOLIC Hx Endocrine Disorders: No - HEMATOLOGICAL/ONCOLOGICAL Hx Human Immunodeficiency Virus (HIV): Yes (042.9) - INTEGUMENTARY Hx Dermatological Problems: No - MUSCULOSKELETAL/RHEUMATOLOGICAL Hx Musculoskeletal Disorders: No - GASTROINTESTINAL Hx Gastrointestinal Disorders: No - GENITOURINARY/GYNECOLOGICAL Hx Sexually Transmitted Disorders: No - PSYCHIATRIC Hx Substance Use: Yes - SURGICAL HISTORY Hx Surgeries: Yes Other/Comment: Neck Lymph Node surgery - ANESTHESIA Hx Anesthesia: No Meds Allergies/Adverse Reactions: Allergies Allergy/AdvReac Type Severity Reaction Status Date / Time No Known Allergies Allergy Verified 04/26/18 10:36 - Medications Medications: Current Medications Acetaminophen (Tylenol 325mg Tab) 650 mg PO Q4 PRN PRN Reason: Pain, moderate (4-7) Al Hydrox/Mg Hydrox/Simethicone (Maalox Plus 30 Ml) 30 ml PO Q4 PRN PRN Reason: Dyspepsia Last Admin: 04/26/18 18:03 Dose: 30 ml Diphenhydramine HCl (Benadryl) 50 mg IM Q6 PRN PRN Reason: Extrapyramidal S/S Unable PO Diphenhydramine HCl (Benadryl) 50 mg PO Q6 PRN PRN Reason: Extrapyramidal Symptoms Haloperidol (Haldol) 5 mg PO Q4 PRN PRN Reason: Agitation Haloperidol Lactate (Haldol) 5 mg IM Q4 PRN PRN Reason: Agitation, Unable to Take PO Lorazepam (Ativan) 2 mg IM Q4 PRN PRN Reason: Anxiety/Agitation,Unable PO Lorazepam (Ativan) 2 mg PO Q4 PRN PRN Reason: Anxiety/Agitation Magnesium Hydroxide (Milk Of Magnesia) 30 ml PO HS PRN PRN Reason: Constipation Physical Exam - Constitutional Appears: Non-toxic, No Acute Distress - Head Exam Head Exam: ATRAUMATIC, NORMOCEPHALIC - Eye Exam Eye Exam: Normal appearance. absent: Conjunctival injection Pupil Exam: PERRL - ENT Exam ENT Exam: Mucous Membranes Moist - Respiratory Exam Respiratory Exam: Clear to Auscultation Bilateral, NORMAL BREATHING PATTERN. absent: Accessory Muscle Use, Chest Wall Tenderness, Decreased Breath Sounds, Rales, Rhonchi, Wheezes, Respiratory Distress, Stridor - Cardiovascular Exam Cardiovascular Exam: REGULAR RHYTHM, +S1, +S2 - GI/Abdominal Exam GI & Abdominal Exam: Normal Bowel Sounds, Soft. absent: Distended, Guarding, Rebound, Rigid, Tenderness - Extremities Exam Extremities exam: Positive for: normal inspection. Negative for: calf tenderness, pedal edema - Back Exam Back exam: NORMAL INSPECTION. absent: CVA tenderness (L), CVA tenderness (R), paraspinal tenderness - Neurological Exam Neurological exam: Alert, Oriented x3 - Psychiatric Exam Psychiatric exam: Normal Affect, Normal Mood Additional comments: Talkative - Skin Skin Exam: Dry, Intact, Normal Color Results - Vital Signs Recent Vital Signs: Last Vital Signs Temp 97.5 F L 04/26/18 16:41 Pulse 81 04/26/18 16:41 Resp 18 04/26/18 16:41 BP 121/89 04/26/18 16:41 Pulse Ox 100 04/26/18 19:36 - Labs Result Diagrams: 04/26/18 11:45 04/26/18 11:45 Labs: Laboratory Results - last 24 hr 04/26/18 04/26/18 04/26/18 11:45 11:45 12:50 WBC 3.2 L RBC 3.81 L Hgb 12.7 Hct 36.9 MCV 96.9 H MCH 33.3 H MCHC 34.3 RDW 13.6 Plt Count 213 MPV 7.8 Neut % (Auto) 63.2 Lymph % (Auto) 16.1 L [place] % (Auto) 17.7 H Eos % (Auto) 2.7 Baso % (Auto) 0.3 Neut # (Auto) 2.0 Lymph # (Auto) 0.5 L [place] # (Auto) 0.6 Eos # (Auto) 0.1 Baso # (Auto) 0.0 Sodium 139 Potassium 4.2 Chloride 101 Carbon Dioxide 28 Anion Gap 14 BUN 12 Creatinine 0.8 Est GFR ( Amer) > 60 Est GFR (Non-Af Amer) > 60 Random Glucose 83 Calcium 9.0 Total Bilirubin 0.5 AST 34 ALT 28 Alkaline Phosphatase 85 Total Protein 8.2 Albumin 3.9 Globulin 4.3 H Albumin/Globulin Ratio 0.9 L Urine Color Urine Clarity Urine pH Ur Specific [place] Urine Protein Urine Glucose (UA) Urine Ketones Urine Blood Urine Nitrate Urine Bilirubin Urine Urobilinogen Ur Leukocyte Esterase Urine RBC (Auto) Urine Microscopic WBC Ur Squamous Epith Cells Urine Bacteria Urine Opiates Screen Negative Urine Methadone Screen Negative Ur Barbiturates Screen Negative Ur Phencyclidine Scrn Negative Ur Amphetamines Screen Negative U Benzodiazepines Scrn Negative U Oth Cocaine Metabols Positive H U Cannabinoids Screen Negative Alcohol, Quantitative < 10 04/26/18 12:50 WBC RBC Hgb Hct MCV MCH MCHC RDW Plt Count MPV Neut % (Auto) Lymph % (Auto) [place] % (Auto) Eos % (Auto) Baso % (Auto) Neut # (Auto) Lymph # (Auto) [place] # (Auto) Eos # (Auto) Baso # (Auto) Sodium Potassium Chloride Carbon Dioxide Anion Gap BUN Creatinine Est GFR ( Amer) Est GFR (Non-Af Amer) Random Glucose Calcium Total Bilirubin AST ALT Alkaline Phosphatase Total Protein Albumin Globulin Albumin/Globulin Ratio Urine Color Yellow Urine Clarity Slighty-cloudy Urine pH 7.0 Ur Specific [place] 1.020 Urine Protein Negative Urine Glucose (UA) Neg Urine Ketones Negative Urine Blood Negative Urine Nitrate Negative Urine Bilirubin Negative Urine Urobilinogen 0.2-1.0 Ur Leukocyte Esterase Neg Urine RBC (Auto) 2 Urine Microscopic WBC 1 Ur Squamous Epith Cells < 1 Urine Bacteria Rare Urine Opiates Screen Urine Methadone Screen Ur Barbiturates Screen Ur Phencyclidine Scrn Ur Amphetamines Screen U Benzodiazepines Scrn U Oth Cocaine Metabols U Cannabinoids Screen Alcohol, Quantitative Assessment & Plan - Assessment and Plan (Free Text) Assessment: 52 y/o male with PMHx of HIV infection, Depression, anxiety admitted to Psych unit to manage major depressive disorder. Plan: Depression -Psych unit -being managed by Psych HIV Infection -with h/o AIDS, CD4 count 41 -patient has not been taking any ARV's for 8 months -as per eCW last seen on 07/27/[address] Zurita -was taking Epzicom 600-300 mg -was taking Tivicay 50 mg -was on Azithromycin 1200 mg once a week -was on Bactrim DS 800-160 mg daily -last HIV viral load on 07/20/17 was 420 -last CD4 count 41 on 07/20/17 -f/u repeat HIV viral load, and CD4 count before we start ARV's -consider oportunistic infection prophylaxis based on CD4 count -pt is agreeable to resume her ARV's therapy -CXR on admission reported as clear lungs -noted on eCW HLA [id number] negative Weight loss -possible secondary to Depression, but also could be related to HIV infection as well -Pt states he has been stressed which has caused him to be unable to "eat or sleep well for months". -denies any other associated symptoms -will repeat HIV labs -CBC: unremarkable -CMP: WNL -UA WNL -CXR on admission reported as clear lungs -check Hep C ab. As per eCW had a HCV negative in the past -f/u TSH -f/u HgbA1C -consider Screening colonoscopy for Colon cancer as outpatient -has a h/o left side of neck lymph node removed on 2006. -will discuss malignancy work up with AM team and primary doctor, Dr. Zurita DVT prophylaxis -ambulating - Date & Time Date: 04/26/18 Time: 20:10
--- NOTE | 2018-04-26 20:59 | CARD ---
APPROVED REPORT EKG Measurement Heart [id number] <Conclusion> Normal sinus rhythm Normal ECG
--- NOTE | 2018-04-27 18:11 | CP.PCM.PN ---
Subjective - Date & Time of Evaluation Date of Evaluation: 04/27/18 Time of Evaluation: 08:15 - Subjective Subjective: Patient seen and examined, NAD, states feeling depressed since his parents , but denies any suiccidal thoughts, c/o of poor appetite, denies N/V /D, fever, chills, productive cough, SOB, chest pain. Objective - Vital Signs/Intake and Output Vital Signs (last 24 hours): Temp Pulse Resp BP Pulse Ox 97.8 F 87 18 133/73 100 04/27/18 16:37 04/27/18 16:37 04/27/18 16:37 04/27/18 16:37 04/26/18 19:36 - Medications Medications: Current Medications Acetaminophen (Tylenol 325mg Tab) 650 mg PO Q4 PRN PRN Reason: Pain, moderate (4-7) Al Hydrox/Mg Hydrox/Simethicone (Maalox Plus 30 Ml) 30 ml PO Q4 PRN PRN Reason: Dyspepsia Last Admin: 04/26/18 22:35 Dose: 30 ml Azithromycin (Zithromax) 1,600 mg PO QWK BACILIO PRN Reason: Protocol Diphenhydramine HCl (Benadryl) 50 mg IM Q6 PRN PRN Reason: Extrapyramidal S/S Unable PO Diphenhydramine HCl (Benadryl) 50 mg PO Q6 PRN PRN Reason: Extrapyramidal Symptoms Haloperidol (Haldol) 5 mg PO Q4 PRN PRN Reason: Agitation Haloperidol Lactate (Haldol) 5 mg IM Q4 PRN PRN Reason: Agitation, Unable to Take PO Lorazepam (Ativan) 2 mg IM Q4 PRN PRN Reason: Anxiety/Agitation,Unable PO Lorazepam (Ativan) 2 mg PO Q4 PRN PRN Reason: Anxiety/Agitation Magnesium Hydroxide (Milk Of Magnesia) 30 ml PO HS PRN PRN Reason: Constipation Trimethoprim/Sulfamethoxazole (Bactrim Ds Tab) 1 tab PO DAILY BACILIO PRN Reason: Protocol - Labs Labs: 04/26/18 11:45 04/26/18 11:45 - Constitutional Appears: No Acute Distress - Head Exam Head Exam: ATRAUMATIC, NORMOCEPHALIC - Eye Exam Eye Exam: EOMI, PERRL - ENT Exam ENT Exam: Mucous Membranes Moist Additional comments: white patches noted on tongue - Neck Exam Neck Exam: Full ROM. absent: Lymphadenopathy - Respiratory Exam Respiratory Exam: Clear to Ausculation Bilateral. absent: Wheezes - Cardiovascular Exam Cardiovascular Exam: REGULAR RHYTHM, +S1, +S2 - GI/Abdominal Exam GI & Abdominal Exam: Soft, Normal Bowel Sounds. absent: Organomegaly - Extremities Exam Extremities Exam: Full ROM. absent: Pedal Edema - Neurological Exam Neurological Exam: Alert, Awake, Normal Gait, Oriented x3 - Psychiatric Exam Psychiatric exam: Anxious, Depressed - Skin Skin Exam: Normal Color, Warm Assessment and Plan - Assessment and Plan (Free Text) Assessment: 52 y/o male with PMHx of HIV infection non-adherent to his ART, depression, anxiety admitted to Psych unit to manage major depressive disorder. Plan: Depression -Psych unit -being managed by Psych HIV Infection -with h/o AIDS, CD4 count 41 -patient has not been compliant with his ART drugs -as per eCW last seen on 07/27/[address] Zurita -was taking Epzicom 600-300 mg -was taking Tivicay 50 mg -was on Azithromycin 1200 mg once a week -was on Bactrim DS 800-160 mg daily -last HIV viral load on 07/20/17 was 420 -last CD4 count 41 on 07/20/17 -f/u repeat HIV viral load, and CD4 count before we start ARV's, pending results -consider oportunistic infection prophylaxis based on CD4 count Weight loss -possible secondary to Depression vs AIDS related -Patient states being stressed and feeling some sadeness since his parents -denies any other associated symptoms -f/u repeat HIV labs -CBC: wbc 3.2 -CMP:wnl -UA: Wnl -CXR on admission reported as clear lungs -Hep C ab: negative -TSH: pending reslts -HgbA1C: pending results -consider Screening colonoscopy for Colon cancer as outpatient DVT prophylaxis -pt is ambulatory
--- NOTE | 2018-04-27 18:40 | PCM.PYCHPN ---
Psychiatric Progress Note - Psychiatric Progress Note Patient seen today, length of contact: chart reviewed case discussed with team Patient Chief Complaint: reports that after being on unit and reportedly having interaction with unit staff is feeling more comfortable on unit. verbally states understands now that psychiatry is a branch of medicine. reports that will most likely rescind 48 hour notice. reports trouble sleeping as well as decreased mood. reports when not using cocaine is depressed. expresses interest in resuming medications for B20, requests information medication for sleep, appetite and mood. staff report that pt has been seen about unit, at times somewhat boisterous but redirectable. has been seen by family practice team related to B20. Problems Identified/Issues Discussed: alteration in mood alteration in sleep alteration in appetite alteration in coping alteration in immune function Medical Problems: per chart pt being followed by family practice Diagnostic Results: per psychiatry per medicine per nursing per psychotherapist social worker per recreational therapy DSM 5 Symptoms Update: depressed mood decreased appetite decreased sleep Medication Change: Yes (start mirtazepine 7.5mg po hs) Medical Record Reviewed: Yes Consults ordered or reviewed: pt being followed by family practice Mental Status Examination - Cognitive Function Orientation: Person, Place, Situation, Time Attention: WNL Concentration: WNL Association: WNL Fund of Knowledge: WN Decription of patient's judgement and insights: impaired - Affect Affect: Broad - Speech Additional comments: varied - Formal Thought Process Formal Thought Process: No Impairment - Homicidal Ideation Homicidal Ideation: No Goal/Treatment Plan - Goal/Treatment Plan Progress Toward Problem(s) and Goals/Treatment Plan: inpt milieu p vital signs and clinical observation per protocol and per clinical status prns per unit protocol family practice consult related to hx. of B20 and ART's pt received explaination from team related to 48 hour notice: up to 48 hours to ascertain if safe to discharge pt, if before 48 hrs (not later than 48hours) team must make clinical decision to have client evaluated by [facility] for possible involuntary commitment-pt expresses that will rescind 48 hour notice before tomorrow pt received explaination as to [facility] grievance procedure-pt reportedly visited by unit staff will start mirtazepine 7.5mg po hs pt to be given opportunity to rescind 48 hour notice will reassess accordingly at this time if medically necessary and pt psychiatrically stable pt may be transferred to medical floor Estimated Date of D/C: 04/29/18 If changed, why: deferred - Smoking Cessation Smoking Cessation Initiated: No Reason for not providing: deferred
[2018-04-28 09:14] LABS: T4 6.67 ug/dl (5.5-11.0)
[2018-04-28] MEDS: Tmp-Smz 800 mg-160 mg DS Tab PO SCH (09:23)
--- NOTE | 2018-04-28 11:50 | PCM.PYCHPN ---
Psychiatric Progress Note - Psychiatric Progress Note Patient Chief Complaint: "I have a headache, I don't want to talk." Problems Identified/Issues Discussed: Patient is irritable, refused to come to treatment team and currently refusing to engage in interview with repairer typewriter. He reports having a headache. He has been irritable towards several staff members. Medication Change: No Medical Record Reviewed: Yes Consults ordered or reviewed: Medicine consult Mental Status Examination - Cognitive Function Orientation: Person, Place, Situation, Time Memory: Intact Attention: WNL Concentration: WNL Association: WNL Fund of Knowledge: [facility] Decription of patient's judgement and insights: Poor I/J - Mood Mood: Depressed - Affect Affect: Blunted - Formal Thought Process Formal Thought Process: No Impairment - Suicidal Ideation Suicidal Ideation: No - Homicidal Ideation Homicidal Ideation: No Goal/Treatment Plan - Goal/Treatment Plan Need for Continued Stay: Remain at risks for inpatient hospitalization, Discharge may exacerbated symptoms Progress Toward Problem(s) and Goals/Treatment Plan: Substance Induced Mood Disorder; Cocaine Use Disorder -Individual and group therapy -Continue Remeron -Medicine consult -Psychoeducation -Disposition planning Estimated Date of D/C: 04/30/18
--- NOTE | 2018-04-29 09:36 | PCM.PYCHPN ---
Psychiatric Progress Note - Psychiatric Progress Note Patient seen today, length of contact: chart reviewed case discussed with team Patient Chief Complaint: pt reports feeling anxious and depressed and has decrease in appetite and weight and not able to sleep and has been more irritible .pt has agreed to rescind the 48 hr letter and agreed to take meds for depression and his HIV illness.pt denies suicidal ideation . Problems Identified/Issues Discussed: depression,anxiety and HIV illness Medication Change: Yes (increase remeron to 15 mg hs) Medical Record Reviewed: Yes Mental Status Examination - Cognitive Function Orientation: Person, Place, Situation, Time Memory: Intact Attention: WNL Concentration: WNL Association: WNL Fund of Knowledge: WNL - Mood Mood: Depressed - Affect Affect: Blunted - Formal Thought Process Formal Thought Process: No Impairment - Suicidal Ideation Suicidal Ideation: No - Homicidal Ideation Homicidal Ideation: No Goal/Treatment Plan - Goal/Treatment Plan Need for Continued Stay: Remain at risks for inpatient hospitalization, Discharge may exacerbated symptoms Progress Toward Problem(s) and Goals/Treatment Plan: A/P : major depression,recurrent r/o bipolar disorder mood disorder related to cocaine abuse cocaine abuse Plan : will increase remeron to 15 mg hs and add a mood stabilizer if mood remains irritible . will engage pt in therapy. Disposition planning when stable Estimated Date of D/C: 04/30/18
[2018-04-29] MEDS: Alum-Mag Hydrox-Simethicone Susp (30 mL) PO PRN (09:37)
[2018-04-29] MEDS: Tmp-Smz 800 mg-160 mg DS Tab PO SCH (11:23)
[2018-04-30] MEDS: Tmp-Smz 800 mg-160 mg DS Tab PO SCH (09:26)
--- NOTE | 2018-04-30 11:46 | PCM.PYCHPN ---
Psychiatric Progress Note - Psychiatric Progress Note Patient seen today, length of contact: chart reviewed case discussed with team Patient Chief Complaint: pthas been feeling very irritible and labile and could not sleep due to racing thoughts at bedtime .pt still reports feeling anxious and depressed and has decrease in appetite and weight and not able to sleep and has been more irritible ..pt denies suicidal ideation . Problems Identified/Issues Discussed: depression,anxiety and HIV illness Medication Change: Yes (add seroquel 25 mg hs) Medical Record Reviewed: Yes Mental Status Examination - Cognitive Function Orientation: Person, Place, Situation, Time Memory: Intact Attention: WNL Concentration: WNL Association: WNL Fund of Knowledge: WNL - Mood Mood: Depressed - Affect Affect: Blunted - Formal Thought Process Formal Thought Process: No Impairment - Suicidal Ideation Suicidal Ideation: No - Homicidal Ideation Homicidal Ideation: No Goal/Treatment Plan - Goal/Treatment Plan Need for Continued Stay: Remain at risks for inpatient hospitalization, Discharge may exacerbated symptoms Progress Toward Problem(s) and Goals/Treatment Plan: A/P : major depression,recurrent r/o bipolar disorder mood disorder related to cocaine abuse cocaine abuse Plan : will add seroquel 25 mg hs for racing thoughts and irritible mood and titrate as needed . will engage pt in therapy. Disposition planning when stable Estimated Date of D/C: 04/30/18
[2018-04-30] MEDS: Alum-Mag Hydrox-Simethicone Susp (30 mL) PO PRN (18:13)
[2018-04-30] MEDS ORDERED: Benzocaine/Menthol (Cepacol) Lozenge PO ONE (18:36)
--- NOTE | 2018-05-01 09:53 | PCM.PYCHPN ---
Psychiatric Progress Note - Psychiatric Progress Note Patient seen today, length of contact: Patient evaluated, chart reviewed, case discussed w/ team Patient Chief Complaint: "I'm depressed." Problems Identified/Issues Discussed: Patient continues to report feeling depressed, but he feels that the medication is helping him and he is goal oriented towards taking better care of himself. NO AH/VH/paranoia/delusions/SI/HI. Medication Change: No Medical Record Reviewed: Yes Consults ordered or reviewed: Medicine consult Mental Status Examination - Cognitive Function Orientation: Person, Place, Situation, Time Memory: Intact Attention: WNL Concentration: WNL Association: WNL Fund of Knowledge: [facility] Decription of patient's judgement and insights: Improving I/J - Mood Mood: Depressed - Affect Affect: Constricted - Speech Speech: Appropriate - Formal Thought Process Formal Thought Process: No Impairment Psychotic Thoughts and Behaviors: No AH/VH/paranoia/delusions - Suicidal Ideation Suicidal Ideation: No - Homicidal Ideation Homicidal Ideation: No Goal/Treatment Plan - Goal/Treatment Plan Need for Continued Stay: Remain at risks for inpatient hospitalization, Discharge may exacerbated symptoms Progress Toward Problem(s) and Goals/Treatment Plan: Substance Induced Mood Disorder; Cocaine Use Disorder -Individual and group therapy -Continue Remeron and Seroquel -Medicine consult -Psychoeducation -Disposition planning Estimated Date of D/C: 05/04/18
[2018-05-01] MEDS: Tmp-Smz 800 mg-160 mg DS Tab PO SCH (10:41)
[2018-05-02] MEDS: Tmp-Smz 800 mg-160 mg DS Tab PO SCH (09:21)
--- NOTE | 2018-05-02 16:22 | PCM.PYCHPN ---
Psychiatric Progress Note - Psychiatric Progress Note Patient seen today, length of contact: Patient evaluated, chart reviewed, case discussed w/ team Patient Chief Complaint: pthas been feeling less irritible and less labile with seroquel and sleeps better .pt still reports feeling anxious and depressed and has decrease in appetite and weight and not able to sleep and has been more irritible ..pt denies suicidal ideation . Problems Identified/Issues Discussed: depression,anxiety and HIV illness Medication Change: No Medical Record Reviewed: Yes Mental Status Examination - Cognitive Function Orientation: Person, Place, Situation, Time Memory: Intact Attention: WNL Concentration: WNL Association: WNL Fund of Knowledge: WNL - Mood Mood: Depressed - Affect Affect: Constricted - Speech Speech: Appropriate - Formal Thought Process Formal Thought Process: No Impairment - Suicidal Ideation Suicidal Ideation: No - Homicidal Ideation Homicidal Ideation: No Goal/Treatment Plan - Goal/Treatment Plan Need for Continued Stay: Remain at risks for inpatient hospitalization, Discharge may exacerbated symptoms Progress Toward Problem(s) and Goals/Treatment Plan: A/P : major depression,recurrent r/o bipolar disorder mood disorder related to cocaine abuse cocaine abuse Plan : will add seroquel 25 mg hs for racing thoughts and irritible mood and titrate as needed . will engage pt in therapy. Disposition planning when stable Estimated Date of D/C: 05/04/18
--- NOTE | 2018-05-03 09:12 | CP.PCM.PN ---
Subjective - Date & Time of Evaluation Date of Evaluation: 05/03/18 Time of Evaluation: 09:05 - Subjective Subjective: Pt evaluate and seen at bedside. Pt in no acute distress. Pt reports gradual improvement in depression with medications. Denies any SI or HI. Improvement in appetite. Pt reported bright red blood and pain with defecation. He reports H/O hemorrhoids. Denies any headache, fever, chills, abdominal pain, nausea, vomiting or diarrhea. Objective - Vital Signs/Intake and Output Vital Signs (last 24 hours): Temp Pulse Resp BP Pulse Ox 97.0 F L 92 H 18 107/65 100 05/02/18 22:00 05/02/18 22:00 05/02/18 22:00 05/02/18 22:00 04/26/18 19:36 - Medications Medications: Current Medications Acetaminophen (Tylenol 325mg Tab) 650 mg PO Q4 PRN PRN Reason: Pain, moderate (4-7) Last Admin: 04/28/18 13:15 Dose: 650 mg Al Hydrox/Mg Hydrox/Simethicone (Maalox Plus 30 Ml) 30 ml PO Q4 PRN PRN Reason: Dyspepsia Last Admin: 04/30/18 18:13 Dose: 30 ml Diphenhydramine HCl (Benadryl) 50 mg IM Q6 PRN PRN Reason: Extrapyramidal S/S Unable PO Diphenhydramine HCl (Benadryl) 50 mg PO Q6 PRN PRN Reason: Extrapyramidal Symptoms Famotidine (Pepcid) 20 mg PO BID BACILIO Last Admin: 05/02/18 16:27 Dose: 20 mg Fluconazole (Diflucan) 100 mg PO DAILY BACILIO PRN Reason: Protocol Stop: 05/08/18 09:01 Last Admin: 05/02/18 09:21 Dose: 100 mg Haloperidol (Haldol) 5 mg PO Q4 PRN PRN Reason: Agitation Haloperidol Lactate (Haldol) 5 mg IM Q4 PRN PRN Reason: Agitation, Unable to Take PO Lorazepam (Ativan) 2 mg IM Q4 PRN PRN Reason: Anxiety/Agitation,Unable PO Lorazepam (Ativan) 2 mg PO Q4 PRN PRN Reason: Anxiety/Agitation Magnesium Hydroxide (Milk Of Magnesia) 30 ml PO HS PRN PRN Reason: Constipation Last Admin: 04/30/18 21:05 Dose: 30 ml Mirtazapine (Remeron) 15 mg PO HS BACILIO Last Admin: 05/02/18 21:13 Dose: 15 mg Quetiapine Fumarate (Seroquel) 25 mg PO HS [facility] Last Admin: 05/02/18 21:13 Dose: 25 mg - Labs Labs: 04/26/18 11:45 04/26/18 11:45 - Constitutional Appears: Well, Non-toxic, No Acute Distress - Head Exam Head Exam: ATRAUMATIC, NORMAL INSPECTION, NORMOCEPHALIC - Eye Exam Eye Exam: EOMI, Normal appearance, PERRL Pupil Exam: NORMAL ACCOMODATION - ENT Exam ENT Exam: Mucous Membranes Moist Additional comments: resolution of thrush - Neck Exam Neck Exam: Full ROM - Respiratory Exam Respiratory Exam: Clear to Ausculation Bilateral, NORMAL BREATHING PATTERN - Cardiovascular Exam Cardiovascular Exam: REGULAR RHYTHM, +S1, +S2. absent: Murmur - GI/Abdominal Exam GI & Abdominal Exam: Soft, Normal Bowel Sounds - Rectal Exam Rectal Exam: Deferred - Back Exam Back Exam: NORMAL INSPECTION - Skin Skin Exam: Dry, Intact, Normal Color Assessment and Plan - Assessment and Plan (Free Text) Assessment: 52 y/o male with PMHx of HIV infection non-adherent to his ART, depression, anxiety admitted to Psych unit to manage major depressive disorder. Plan: Plan: Depression -Psych unit -being managed by Psych HIV Infection -Uncontrolled, h/o AIDS, CD4 count 41 -patient non-compliant with his ART -as per eCW last seen on 07/27/[address] Zurita -was taking Epzicom 600-300 mg and Tivicay 50 mg -was on Azithromycin 1200 mg once a week -was on Bactrim DS 800-160 mg daily -last HIV Viral Load 420 and CD 4 count 41 on 07/20/17 -consider opportunistic infection prophylaxis based on CD4 count Oral Thrush - Improvement with Diflucan. - Will monitor pt. Blood in Stool - H/O hemorrhoids - Noticed on wiping, Most likely secondary to hemorrhoids - Rectal exam deferred because roommate in the room. - FOBT ordered. Results pending. Weight loss -possible secondary to Depression vs AIDS related -Patient states being stressed and feeling some sadness since his parents -CBC: wbc 3.2, CMP:wnl, UA: Wnl -CXR on admission reported as clear lungs -Hep C ab: Negative -RPR Negative -TSH: 1.50 -HgbA1C: 5.6 -consider Screening colonoscopy for Colon cancer as outpatient DVT prophylaxis -pt is ambulatory
[2018-05-05 09:24] VITALS: RESP 18
[2018-05-05] MEDS: Tmp-Smz 800 mg-160 mg DS Tab PO SCH (13:34)
--- NOTE | 2018-05-05 17:26 | PCM.PYCHPN ---
Psychiatric Progress Note - Psychiatric Progress Note Patient seen today, length of contact: Patient evaluated, chart reviewed, case discussed w/ team Patient Chief Complaint: I feel better with the remeron Problems Identified/Issues Discussed: pt evaluated with treatment team reported improved sleep and appetite, no reported side effects of medications, motivational therapy provided in refernce to cocaine use , pt agreed to join outpatient [facility] program on discharge, denied any current suicidal or homicidal ideation DSM 5 Symptoms Update: depression cocaine abuse Medication Change: No Medical Record Reviewed: Yes Mental Status Examination - Cognitive Function Orientation: Person, Place, Situation, Time Memory: Intact Attention: WNL Concentration: WNL Association: WNL Fund of Knowledge: WNL - Mood Mood: Anxious - Affect Affect: Constricted - Speech Speech: Appropriate - Formal Thought Process Formal Thought Process: No Impairment Psychotic Thoughts and Behaviors: pt denied - Suicidal Ideation Suicidal Ideation: No - Homicidal Ideation Homicidal Ideation: No Goal/Treatment Plan - Goal/Treatment Plan Need for Continued Stay: Remain at risks for inpatient hospitalization, Discharge may exacerbated symptoms Progress Toward Problem(s) and Goals/Treatment Plan: continue with remeron and seroquel motivational group and supportive therapy Estimated Date of D/C: 05/06/18
[2018-05-05 17:36] VITALS: PULSE 76
--- NOTE | 2018-05-06 08:24 | PN ---
DATE: 05/03/2018 PSYCHIATRIC FOLLOWUP PROGRESS NOTE Please note that the note should go at [facility] under 05/03/2018. SUBJECTIVE: The patient has been seen today for psychiatric followup and management. The patient has a significant history of major depression disorder, and he has been admitted because of significant depression and suicidal ideation. The patient apparently has been complaining of depression and has been admitted because of not able to deal with depression and complaining of symptoms of insomnia, poor appetite, poor sleep, and has been admitted for stabilization of depression. The patient has been started on medication, Remeron 15 mg at bedtime for insomnia and depression, and also has been started on Seroquel as well to stabilize the mood symptoms. The patient reports much better on the Remeron 15 mg at bedtime for depression and insomnia and Seroquel 25 mg at bedtime to stabilize the mood. No reports of any mood outburst. No reports of any psychotic symptoms. Denies suicidal ideation, thought or intent. Able to contract for safety, fair insight, fair judgment. The patient has been improving, looking forward to getting better, and in the unit, the patient has been participating in groups and activities. No reports of any aggressive behavior. Insight and judgment are improving. DIAGNOSTIC IMPRESSION: Major depressive disorder. PLAN OF TREATMENT: We will continue the current regimen of Remeron and Seroquel and further titrate as needed to stabilize the patient, engage the patient in therapy and groups for followup. The patient has been followed by hospitalist regarding his medical issues, and the patient therefore has been referred to treatment team for disposition planning. Once the patient is stabilized, we will initiate discharge planning. Macho Granger MD
[2018-05-06] MEDS: Tmp-Smz 800 mg-160 mg DS Tab PO SCH (08:34)
[2018-05-06 09:11] VITALS: BP 118/72; TEMP 96.6
--- NOTE | 2018-05-06 14:32 | PCM.PYCHDC ---
Mental Status Examination - Mental Status Examination Orientation: Person, Place, Situation Memory: Intact Mood: Neutral Affect: Broad Speech: Appropriate Attention: WNL Concentration: WNL Association: WNL Fund of Knowledge: WNL Formal Thought Process: No Impairment Description of patient's judgement and insight: partial insight fair judgment Psychotic Thoughts and Behaviors: pt denied, non elicited Suicidal Ideation: No Current Homicidal Ideation?: No Discharge Summary - Discharge Note Reason for Hospitalization: pt presented to [facility] from [facility] after self referral for concerns about decreased weight, decreased sleep, decreased appetite, stopping antiretroviral therapy (art's) approx 8 months ago-got tired taking meds wanted to take a break , was not admittedly an attempt to harmself. pt is pt of [facility]-last seen 07/[address] Zurita. pt 's last reported weight in 07/2017 was 151 lbs, today was 130.5lbs. pt is noted to have utox positive for cocaine. Consultations:: List each consultation separately and include: 1. Reason for request. 2. Findings. 3. Follow-up Summary of Hospital Course include:: 1. Description of specific treatment plan utilized for patients during their course of treatmen. 2. Summarize the time- course for resolution of acute symptoms and/or regressed behaviors. 3. Describe issues identified and worked on during hospitalization. 4. Describe medication utilized. 5. Describe medical problems identified and treated. 6. Reassessment of suicide risk Summary of Hospital Course: pt was started on remeron it was increased gradually to 15mg qhs motivational, group and supportive therapy provided Internal medicine consult provided for HIV treatment pt was compliant with treatment, no reported side effects of medications on discharge mental status was stable. pt denied any current suicidal or homicidal ideation denied perceptual disturbances follow up arranged by social work instructor at [facility] [place] [facility] - Diagnosis (1) Depression Status: Acute - Final Diagnosis (DSM 5) Condition upon Discharge: STABLE Disposition: HOME/ ROUTINE Prescriptions/Medication Reconciliation: Famotidine [Pepcid] 20 mg PO BID 30 Days #60 tab Mirtazapine [Remeron] 15 mg PO HS 30 Days #30 tab QUEtiapine [Seroquel] 25 mg PO HS 30 Days #30 tab - Smoking Cessation Smoking Cessation Medication prescribed: No - Antipsychotic Medications Pt discharged on 2 or more routine antipsychotic medications: No
== END 2018-05-06 14:25 | disposition home or self-care (01) | DRG 430 ==
LOC: H.ER 10:01 → H.ERHOLD 12:47 → H.PSYCH 15:42
PROVIDERS: ADMIT Psychiatry & Neurology Psychiatry; ATTEND Psychiatry & Neurology Psychiatry
PROC: HZ52ZZZ Individual Psychotherapy for Substance Abuse Treatment, Cognitive-Behavioral (ICD-10-PCS; principal; 2018-04-26)
PROC: GZHZZZZ Group Psychotherapy (ICD-10-PCS; 2018-04-26)
PROC: GZ58ZZZ Individual Psychotherapy, Cognitive-Behavioral (ICD-10-PCS; 2018-04-27)
DX: F33.9 Major depressive disorder, recurrent, unspecified (principal); B20 Human immunodeficiency virus [HIV] disease; F14.14 Cocaine abuse with cocaine-induced mood disorder; D72.819 Decreased white blood cell count, unspecified; F41.9 Anxiety disorder, unspecified; G47.00 Insomnia, unspecified; F17.210 Nicotine dependence, cigarettes, uncomplicated; Z59.9 Problem related to housing and economic circumstances, unspecified; Z79.899 Other long term (current) drug therapy

== ENCOUNTER 2018-09-08 13:11 | Inpatient (IN) | payer MEDICAID ==
[2018-09-08 13:12] VITALS: BMI 23.1
--- NOTE | 2018-09-08 14:26 | ED PDOC ---
HPI: General Adult Time Seen by Provider: 09/08/18 13:36 Chief Complaint (Nursing): Cough, Cold, Congestion Chief Complaint (Provider): malaise, cough, SOB History Per: Patient History/Exam Limitations: no limitations Onset/Duration Of Symptoms: Gradual Current Symptoms Are (Timing): Still Present Severity: Moderate Additional Complaint(s): 53yo M hx HIV/ likely AIDS presents c/o weight loss, diarrhea, cough and shortness of breath ongoing for several weeks, worsening. Also notes difficulty swallowing, denies fever, blood in stool, hemoptysis or night sweats. Admits to alcohol and cocaine abuse recently. Denies taking recommended HAART or antibiotic suppressive regimen, states "I was sick of taking medicine". Past Medical History Reviewed: Historical Data, Nursing Documentation, Vital Signs Vital Signs: Last Vital Signs Temp 97.6 F 09/08/18 13:28 Pulse 72 09/08/18 13:28 Resp 18 09/08/18 13:28 BP 104/69 09/08/18 13:28 Pulse Ox 100 09/08/18 13:28 - Medical History PMH: Back Problems, HIV (042.9) Denies: Diabetes, Hepatitis, HTN, Chronic Kidney Disease, Seizures, Sexually Transmitted Disease - Family History Family History: States: Unknown Family Hx - Living Arrangements Living Arrangements: Alone - Social History Current smoker - smoking cessation education provided: Yes Alcohol: Occasional Drugs: Cocaine - Home Medications Home Medications: Ambulatory Orders Medication Instructions Recorded RX: Abacavir Sulfate/Lamivudine 1 tab PO DAILY 04/26/18 [Abacavir-Lamivudine 600-300 mg] RX: Azithromycin [Zithromax] 1,200 mg PO SUN 04/26/18 RX: Dolutegravir Sodium [Tivicay] 50 mg PO DAILY 04/26/18 RX: Sulfamethoxazole/Trimethoprim 1 tab PO DAILY 04/26/18 [Bactrim DS Tab] RX: Famotidine [Pepcid] 20 mg PO BID 30 Days #60 tab 05/06/18 RX: Mirtazapine [Remeron] 15 mg PO HS 30 Days #30 tab 05/06/18 RX: QUEtiapine [Seroquel] 25 mg PO HS 30 Days #30 tab 05/06/18 Benzocaine/Menthol [Cepacol Sore 1 yamilex MM PRN PRN #1 yamilex 09/09/18 Throat] RX: Azithromycin 500 mg PO DAILY #3 tablet 09/09/18 - Allergies Allergies/Adverse Reactions: Allergies Allergy/AdvReac Type Severity Reaction Status Date / Time strawberry Allergy Intermediate RASH Verified 09/08/18 13:24 Review of Systems ROS Statement: Except As Marked, All Systems Reviewed And Found Negative Constitutional: Positive for: Chills, Weakness, Malaise, Weight loss. Negative for: Fever Eyes: Negative for: Eyelid Inflammation ENT: Positive for: Throat Pain. Negative for: Nose Congestion Respiratory: Positive for: Cough. Negative for: Shortness of Breath Gastrointestinal: Positive for: Nausea, Diarrhea. Negative for: Abdominal Pain, Hematochezia, Hematemesis Genitourinary Male: Negative for: Dysuria Musculoskeletal: Negative for: Neck Pain, Arm Pain, Back Pain, Leg Pain Skin: Negative for: Rash, Lesions Neurological: Positive for: Headache. Negative for: Weakness, Numbness Psych: Positive for: Depression. Negative for: Suicidal ideation Physical Exam - Reviewed Nursing Documentation Reviewed: Yes Vital Signs Reviewed: Yes - Physical Exam Appears: Positive for: Non-toxic (cachexia) Head Exam: Positive for: ATRAUMATIC, NORMAL INSPECTION, NORMOCEPHALIC Skin: Positive for: Normal Color, Warm, DRY Eye Exam: Positive for: EOMI, Normal appearance, PERRL ENT: Positive for: Pharyngeal Erythema, Other (+thrush) Neck: Positive for: Normal, Painless ROM Cardiovascular/Chest: Positive for: Regular Rate, Rhythm Respiratory: Positive for: Normal Breath Sounds. Negative for: Decreased Breath Sounds, Respiratory Distress Pulses-Radial (L): 3+/4+ Pulses-Radial (R): 3+/4+ Gastrointestinal/Abdominal: Positive for: Soft. Negative for: Tenderness, Guarding Back: Positive for: Normal Inspection Extremity: Positive for: Normal ROM. Negative for: Tenderness, Deformity, Swelling Neurologic/Psych: Positive for: Alert, Oriented. Negative for: Motor/Sensory Deficits - Laboratory Results Result Diagrams: 09/09/18 05:50 09/08/18 14:20 - ECG O2 Sat by Pulse Oximetry: 100 Medical Decision Making Medical Decision Making: workup for AIDS related opportunistic infections initiated w labs, CXR, cultures. D/w Dr Zurita PMD, requested culture for MAC /fungal given diarrhea. lab obtained myco/F culture bottle for stain/culture, provided to RN Accession No. : [id number] Patient Name / ID : SUDHA BUSHY / [id number] Exam Date : 09/08/2018 13:41:45 ( Approved ) Study Comment : Sex / Age : M / 53Y Creator : Tracee Malik MD Dictator : Tracee Malik MD [employer] Front Desk Agent : Test Developer : Tracee Malik MD Approver2 : Report Date : 09/08/2018 14:27:19 My Comment : Date of service: 09/08/2018 HISTORY: HIV positive, weight loss COMPARISON: No prior. TECHNIQUE: Chest PA and lateral FINDINGS: LINES AND TUBES: None. LUNG AND PLEURA: The lungs are well inflated and clear. No pleural effusion or pneumothorax. HEART AND MEDIASTINUM: The heart is not enlarged. No aortic atherosclerotic calcification present. The hilar and mediastinal contours are within normal limits. SKELETAL STRUCTURES: The bony structures are within normal limits for the patient's age. VISUALIZED UPPER ABDOMEN: Normal. OTHER FINDINGS: None. IMPRESSION: No active pulmonary disease. D/w PMD Dr Zurita, rec admit for stabilization and r/o opportunistic infection given last CD4= 11 Disposition - Clinical Impression Clinical Impression: AIDS, Thrush of mouth and esophagus - Patient ED Disposition Is Patient to be Admitted: Yes - Disposition Disposition: Transfer of Care Disposition Time: 15:03 Condition: STABLE - Pt Status Changed To: Hospital Disposition Of: Inpatient - Admit Certification Admit to Inpatient:: After my assessment, the patient will require hospitalization for at least two midnights. This is because of the severity of symptoms shown, intensity of services needed, and/or the medical risk in this patient being treated as an outpatient. - POA Present On Arrival: None
--- NOTE | 2018-09-08 14:30 | RAD ---
Date of service: 09/08/2018 HISTORY: HIV positive, weight loss COMPARISON: No prior. TECHNIQUE: Chest PA and lateral FINDINGS: LINES AND TUBES: None. LUNG AND PLEURA: The lungs are well inflated and clear. No pleural effusion or pneumothorax. HEART AND MEDIASTINUM: The heart is not enlarged. No aortic atherosclerotic calcification present. The hilar and mediastinal contours are within normal limits. SKELETAL STRUCTURES: The bony structures are within normal limits for the patient's age. VISUALIZED UPPER ABDOMEN: Normal. OTHER FINDINGS: None. IMPRESSION: No active pulmonary disease.
[2018-09-08 14:55] LABS: BASO % 0.2 % (0.0-2.0); EOS % 1.9 % (0.0-4.0); HEMOGLOBIN 12.5 g/dL (12.0-18.0); LYMPH # 0.3 K/uL (1.0-4.3); LYMPH % 9.8 % (20.0-40.0); MEAN CELL VOLUME 97.5 fl (80.0-94.0); MEAN CORPUSCULAR HEMOGLOBIN 32.4 pg (27.0-31.0); MEAN CORPUSCULAR HGB CONC 33.2 g/dL (33.0-37.0); MEAN PLATELET VOLUME 8.9 fl (7.2-11.7); MONO # 0.3 K/uL (0.0-0.8); MONO % 10.2 % (0.0-10.0); NEUT % 77.9 % (50.0-75.0); NRBC % 0.1 % (0.0-0.0); PLATELET COUNT 146 K/uL (130-400); RBC 3.86 Mil/uL (4.40-5.90); RED CELL DISTRIBUTION WIDTH 13.2 % (11.5-14.5); WHITE BLOOD COUNT 2.6 K/uL (4.8-10.8)
[2018-09-08 15:10] LABS: ALB/GLOB RATIO 0.9 (1.0-2.1); ALBUMIN 3.9 g/dL (3.5-5.0); ALT/SGPT 36 U/L (21-72); AST/SGOT 49 U/L (17-59); BLOOD UREA NITROGEN 12 mg/dl (9-20); CALCIUM 8.6 mg/dL (8.4-10.2); GFR NON-AFRICAN AMERICAN > 60
[2018-09-08 15:49] LABS: BANDS 3 % (0-2); EOSINOPHIL 2 % (0-7); LYMPHOCYTE 13 % (20-50); MONOCYTE 11 % (0-10); NEUTROPHIL 71 % (42-75); TOTAL CELLS COUNTED 100
[2018-09-08 15:51] LABS: PLATELET ESTIMATE NORMAL (NORMAL)
[2018-09-08 15:52] LABS: ANISOCYTOSIS SLIGHT
--- NOTE | 2018-09-08 16:25 | CP.PCM.HP ---
<Sergey Frank - Last Filed: 09/08/18 16:31> History of Present Illness - History of Present Illness History of Present Illness: Pt is 53 yo male PMH AIDs/HIV non-compliant with medication, cocaine abuse, present to ER due to generalized weakness. Patient state he does not feel well and feel weakness all over his body. Patient also state that have been having chronic acid reflux for past couple of month. Otherwise patient have no complain. He denies any chest pain, sob, abdominal pain, diarrhea, dysuria, polyuria but does state he have constipation. Patient state that he use cocaine on occasion, last time was 2 week ago, Patient state he snort it but does not inject or smoke it. He also state he smoke marijuana and 10 cig a day for past 40 years. patient denies any STD in past, or hepatitis or recent travel. Allergy: strawberry PMD: Dr. Zurita PMH: HIV/AIDS PSH: NOne PFH: Mom and dad htn Social: Positive for cocaine, and cigarette 20 pack a year, and marijuana. Denies heroin use or any injection. Full Code ED course. Vital: WNL, BLood pressure 102/69 LAbs: low WBC consistent with AID Chest X-Ray negative for acute disease Culture pending lab obtained myco/F culture bottle for stain/culture workup for AIDS related opportunistic infections initiated. UC/BC is ordered Patient is a 53 yo male PMH AID non-compliant with medication, presented to ED due to generalized weakness. Will put on Observation for generalized weakness Present on Admission - Present on Admission Any Indicators Present on Admission: No Review of Systems - Review of Systems Systems not reviewed;Unavailable: Acuity of Condition - Constitutional Constitutional: As Per HPI, Weight Loss. absent: Anorexia, Daytime Sleepiness, Increased Appetite - EENT Eyes: absent: Blurred Vision, Change in Vision, Discharge, Dry Eye Nose/Mouth/Throat: absent: Nose Pain, Post Nasal Drip - Cardiovascular Cardiovascular: absent: Chest Pain, Chest Pain at Rest, Chest Pain with Activity, Palpitations, Pedal Edema - Respiratory Respiratory: Cough. absent: Dyspnea, Hemoptysis, Dyspnea on Exertion, Wheezing, Pain with Coughing - Gastrointestinal Gastrointestinal: Belching. absent: Abdominal Pain, Change in Bowel Habits, Change in Stool Character, Diarrhea - Genitourinary Genitourinary: As Per HPI - Musculoskeletal Musculoskeletal: Muscle Weakness - Integumentary Integumentary: absent: Non-Healing Lesions, Skin Ulcer - Neurological Neurological: absent: Dizziness, Syncope - Psychiatric Psychiatric: As Per HPI. absent: Behavioral Changes, Hopelessness - Endocrine Endocrine: As Per HPI Past Patient History - Past Social History Alcohol: Occasional Drugs: Cocaine - CARDIAC Hx Hypertension: No - PULMONARY Hx Tuberculosis: No - NEUROLOGICAL Hx Seizures: No - HEENT Hx HEENT Problems: No - RENAL Hx Chronic Kidney Disease: No - ENDOCRINE/METABOLIC Hx Endocrine Disorders: No - HEMATOLOGICAL/ONCOLOGICAL Hx Human Immunodeficiency Virus (HIV): Yes (042.9) - INTEGUMENTARY Hx Dermatological Problems: No - MUSCULOSKELETAL/RHEUMATOLOGICAL Hx Musculoskeletal Disorders: No - GASTROINTESTINAL Hx Gastrointestinal Disorders: No - GENITOURINARY/GYNECOLOGICAL Hx Sexually Transmitted Disorders: No - PSYCHIATRIC Hx Psychophysiologic Disorder: No Hx Substance Use: Yes - SURGICAL HISTORY Hx Surgeries: Yes Other/Comment: Neck Lymph Node surgery - ANESTHESIA Hx Anesthesia: Yes Hx Anesthesia Reactions: No Hx Malignant Hyperthermia: No Meds Allergies/Adverse Reactions: Allergies Allergy/AdvReac Type Severity Reaction Status Date / Time strawberry Allergy Intermediate RASH Verified 09/08/18 13:24 Physical Exam - Constitutional Appears: Well, Non-toxic, No Acute Distress - Head Exam Head Exam: ATRAUMATIC, NORMAL INSPECTION, NORMOCEPHALIC - Eye Exam Eye Exam: EOMI, Normal appearance, PERRL Pupil Exam: NORMAL ACCOMODATION, PERRL - ENT Exam ENT Exam: Mucous Membranes Moist, Normal Exam - Neck Exam Neck exam: Positive for: Normal Inspection - Respiratory Exam Respiratory Exam: Clear to Auscultation Bilateral, NORMAL BREATHING PATTERN - Cardiovascular Exam Cardiovascular Exam: REGULAR RHYTHM, +S1, +S2 - GI/Abdominal Exam GI & Abdominal Exam: Normal Bowel Sounds, Soft - Extremities Exam Extremities exam: Positive for: normal inspection. Negative for: calf tenderness - Back Exam Back exam: NORMAL INSPECTION - Neurological Exam Neurological exam: Alert, Normal Gait, Oriented x3 - Psychiatric Exam Psychiatric exam: Normal Affect, Normal Mood - Skin Skin Exam: Dry, Intact, Normal Color, Warm Results - Vital Signs Recent Vital Signs: Last Vital Signs Temp 97.6 F 09/08/18 13:28 Pulse 72 09/08/18 13:28 Resp 18 09/08/18 13:28 BP 104/69 09/08/18 13:28 Pulse Ox 100 09/08/18 15:05 - Labs Result Diagrams: 09/08/18 14:20 09/08/18 14:20 Labs: Laboratory Results - last 24 hr 09/08/18 09/08/18 09/08/18 14:20 14:20 14:20 WBC 2.6 L RBC 3.86 L Hgb 12.5 Hct 37.6 MCV 97.5 H MCH 32.4 H MCHC 33.2 RDW 13.2 Plt Count 146 MPV 8.9 Neut % (Auto) 77.9 H Lymph % (Auto) 9.8 L Spink % (Auto) 10.2 H Eos % (Auto) 1.9 Baso % (Auto) 0.2 Neut # (Auto) 2.0 Lymph # (Auto) 0.3 L Spink # (Auto) 0.3 Eos # (Auto) 0.0 Baso # (Auto) 0.0 Neutrophils % (Manual) 71 Band Neutrophils % 3 H Lymphocytes % (Manual) 13 L Monocytes % (Manual) 11 H Eosinophils % (Manual) 2 Platelet Estimate Normal Anisocytosis (manual) Slight Macrocytosis (manual) Slight Sodium 141 Potassium 3.9 Chloride 103 Carbon Dioxide 30 Anion Gap 12 BUN 12 Creatinine 0.7 L Est GFR ( Amer) > 60 Est GFR (Non-Af Amer) > 60 Random Glucose 87 Calcium 8.6 Magnesium 2.2 Total Bilirubin 0.5 AST 49 ALT 36 Alkaline Phosphatase 75 Total Protein 8.1 Albumin 3.9 Globulin 4.2 H Albumin/Globulin Ratio 0.9 L Influenza Typ A,B (EIA) Negative for flu a/b Assessment & Plan - Assessment and Plan (Free Text) Assessment: Patient is a 53 yo male PMH AID non-compliant with medication, presented to ED due to generalized weakness. Will put on Observation for generalized weakness. Chest Xray Negative for acute disease Vitals WNL Physical exam within normal limit Plan Generalized weakness Put under observation in med/surge Start normal saline 100ml/h 1L AIDs/HIV WBC 2.6 Continue Home medication DVT prophylaxis SCD PRN Ambulate Lovenox 40 SC <Maddison Bonds - Last Filed: 09/08/18 18:41> Results - Vital Signs Recent Vital Signs: Last Vital Signs Temp 97.6 F 09/08/18 13:28 Pulse 72 09/08/18 13:28 Resp 18 09/08/18 13:28 BP 104/69 09/08/18 13:28 Pulse Ox 100 09/08/18 15:05 - Labs Result Diagrams: 09/08/18 14:20 09/08/18 14:20 Labs: Laboratory Results - last 24 hr 09/08/18 09/08/18 09/08/18 14:20 14:20 14:20 WBC 2.6 L RBC 3.86 L Hgb 12.5 Hct 37.6 MCV 97.5 H MCH 32.4 H MCHC 33.2 RDW 13.2 Plt Count 146 MPV 8.9 Neut % (Auto) 77.9 H Lymph % (Auto) 9.8 L Spink % (Auto) 10.2 H Eos % (Auto) 1.9 Baso % (Auto) 0.2 Neut # (Auto) 2.0 Lymph # (Auto) 0.3 L Spink # (Auto) 0.3 Eos # (Auto) 0.0 Baso # (Auto) 0.0 Neutrophils % (Manual) 71 Band Neutrophils % 3 H Lymphocytes % (Manual) 13 L Monocytes % (Manual) 11 H Eosinophils % (Manual) 2 Platelet Estimate Normal Anisocytosis (manual) Slight Macrocytosis (manual) Slight Sodium 141 Potassium 3.9 Chloride 103 Carbon Dioxide 30 Anion Gap 12 BUN 12 Creatinine 0.7 L Est GFR ( Amer) > 60 Est GFR (Non-Af Amer) > 60 Random Glucose 87 Calcium 8.6 Magnesium 2.2 Total Bilirubin 0.5 AST 49 ALT 36 Alkaline Phosphatase 75 Lactate Dehydrogenase Total Protein 8.1 Albumin 3.9 Globulin 4.2 H Albumin/Globulin Ratio 0.9 L Influenza Typ A,B (EIA) Negative for flu a/b 09/08/18 16:00 WBC RBC Hgb Hct MCV MCH MCHC RDW Plt Count MPV Neut % (Auto) Lymph % (Auto) Spink % (Auto) Eos % (Auto) Baso % (Auto) Neut # (Auto) Lymph # (Auto) Spink # (Auto) Eos # (Auto) Baso # (Auto) Neutrophils % (Manual) Band Neutrophils % Lymphocytes % (Manual) Monocytes % (Manual) Eosinophils % (Manual) Platelet Estimate Anisocytosis (manual) Macrocytosis (manual) Sodium Potassium Chloride Carbon Dioxide Anion Gap BUN Creatinine Est GFR ( Amer) Est GFR (Non-Af Amer) Random Glucose Calcium Magnesium Total Bilirubin AST ALT Alkaline Phosphatase Lactate Dehydrogenase 474 Total Protein Albumin Globulin Albumin/Globulin Ratio Influenza Typ A,B (EIA) Attending/Attestation - Attestation I have personally seen and examined this patient.: Yes I have fully participated in the care of the patient.: Yes I have reviewed all pertinent clinical information: Yes Notes (Text): 09/08/18 18:40 Agree with findings and plan as above. Patient placed on obs for weakness, monitoring for worsening of symptoms. If stable, patient likely discharge tomorrow with follow up with PCP and Dr. Zurita for continuation of management of HIV AIDS.
[2018-09-08] MEDS: Sodium Chloride 0.9% 1,000 ML IV SCH (17:45)
[2018-09-09 02:30] VITALS: RESP 20
[2018-09-09] MEDS: Sodium Chloride 0.9% 1,000 ML IV SCH ×2 (03:43)
[2018-09-09 06:23] LABS: HEMOGLOBIN 11.4 g/dL (12.0-18.0); MEAN CELL VOLUME 96.5 fl (80.0-94.0); MEAN CORPUSCULAR HEMOGLOBIN 32.6 pg (27.0-31.0); MEAN CORPUSCULAR HGB CONC 33.8 g/dL (33.0-37.0); RBC 3.5 Mil/uL (4.40-5.90); WHITE BLOOD COUNT 2.2 K/uL (4.8-10.8)
[2018-09-09] MEDS ORDERED: Tmp-Smz 800 mg-160 mg DS Tab PO SCH (09:00)
[2018-09-09] MEDS ORDERED: Enoxaparin 40 mg Syringe SC SCH (09:00)
[2018-09-09 09:12] VITALS: BP 119/64; PULSE 69; TEMP 97.9
--- NOTE | 2018-09-09 09:31 | CARD ---
APPROVED REPORT Date of service: 09/08/2018 EKG Measurement Heart [id number] <Conclusion> Normal sinus rhythm Normal ECG
--- NOTE | 2018-09-09 11:04 | CP.PCM.DIS ---
Provider - Provider Date of Admission: 09/08/18 15:06 Attending physician: Maddison Bonds DO Time Spent in preparation of Discharge (in minutes): 20 Diagnosis - Discharge Diagnosis (1) AIDS Status: Chronic (2) Thrush of mouth and esophagus Status: Acute (3) Cocaine abuse Status: Chronic Hospital Course - Lab Results Lab Results: Most Recent Lab Values WBC 2.2 K/uL (4.8-10.8) L 09/09/18 05:50 RBC 3.50 Mil/uL (4.40-5.90) L 09/09/18 05:50 Hgb 11.4 g/dL (12.0-18.0) L 09/09/18 05:50 Hct 33.7 % (35.0-51.0) L 09/09/18 05:50 MCV 96.5 fl (80.0-94.0) H 09/09/18 05:50 MCH 32.6 pg (27.0-31.0) H 09/09/18 05:50 MCHC 33.8 g/dL (33.0-37.0) 09/09/18 05:50 RDW 13.0 % (11.5-14.5) 09/09/18 05:50 Plt Count 131 K/uL (130-400) 09/09/18 05:50 MPV 8.9 fl (7.2-11.7) 09/08/18 14:20 Neut % (Auto) 77.9 % (50.0-75.0) H 09/08/18 14:20 Lymph % (Auto) 9.8 % (20.0-40.0) L 09/08/18 14:20 Taylor % (Auto) 10.2 % (0.0-10.0) H 09/08/18 14:20 Eos % (Auto) 1.9 % (0.0-4.0) 09/08/18 14:20 Baso % (Auto) 0.2 % (0.0-2.0) 09/08/18 14:20 Neut # (Auto) 2.0 K/uL (1.8-7.0) 09/08/18 14:20 Lymph # (Auto) 0.3 K/uL (1.0-4.3) L 09/08/18 14:20 Taylor # (Auto) 0.3 K/uL (0.0-0.8) 09/08/18 14:20 Eos # (Auto) 0.0 K/uL (0.0-0.7) 09/08/18 14:20 Baso # (Auto) 0.0 K/uL (0.0-0.2) 09/08/18 14:20 Neutrophils % (Manual) 71 % (42-75) 09/08/18 14:20 Band Neutrophils % 3 % (0-2) H 09/08/18 14:20 Lymphocytes % (Manual) 13 % (20-50) L 09/08/18 14:20 Monocytes % (Manual) 11 % (0-10) H 09/08/18 14:20 Eosinophils % (Manual) 2 % (0-7) 09/08/18 14:20 Platelet Estimate Normal (NORMAL) 09/08/18 14:20 Anisocytosis (manual) Slight 09/08/18 14:20 Macrocytosis (manual) Slight 09/08/18 14:20 Sodium 141 mmol/l (132-148) 09/08/18 14:20 Potassium 3.9 MMOL/L (3.6-5.0) 09/08/18 14:20 Chloride 103 mmol/L (98-107) 09/08/18 14:20 Carbon Dioxide 30 mmol/L (22-30) 09/08/18 14:20 Anion Gap 12 (10-20) 09/08/18 14:20 BUN 12 mg/dl (9-20) 09/08/18 14:20 Creatinine 0.7 mg/dl (0.8-1.5) L 09/08/18 14:20 Est GFR ( Amer) > 60 09/08/18 14:20 Est GFR (Non-Af Amer) > 60 09/08/18 14:20 POC Glucose (mg/dL) 102 mg/dL (65-110) 09/08/18 20:58 Random Glucose 87 mg/dL (75-110) 09/08/18 14:20 Calcium 8.6 mg/dL (8.4-10.2) 09/08/18 14:20 Magnesium 2.2 MG/DL (1.6-2.3) 09/08/18 14:20 Total Bilirubin 0.5 mg/dl (0.2-1.3) 09/08/18 14:20 AST 49 U/L (17-59) 09/08/18 14:20 ALT 36 U/L (21-72) 09/08/18 14:20 Alkaline Phosphatase 75 U/L (38-126) 09/08/18 14:20 Lactate Dehydrogenase 474 U/L (313-618) 09/08/18 16:00 Total Protein 8.1 G/DL (6.3-8.2) 09/08/18 14:20 Albumin 3.9 g/dL (3.5-5.0) 09/08/18 14:20 Globulin 4.2 gm/dL (2.2-3.9) H 09/08/18 14:20 Albumin/Globulin Ratio 0.9 (1.0-2.1) L 09/08/18 14:20 Influenza Typ A,B (EIA) Negative for flu a/b (NEGATIVE) 09/08/18 14:20 - Hospital Course Hospital Course: Pt is 53 yo male PMH AIDs/HIV non-compliant with medication, cocaine abuse, present to ER due to generalized weakness. Patient was admitted for observation in Med/surge. Patient recieved NaCl and his medication overnight. Patient was seen and examined today, there was no acute event. He slept well, he ate well. Patient denies headache, chest pain, sob, abd pain, diarrhea, constipation, dysuria, polyuria. Patient state he feel better, weakness improved and ready to go home. Patient was seen by medical team and is cleared to go home Telephone encounter was sent to Ilana Clifton to make an appointment with Dr. Zurita, Patient state he will go Thursday to make sure he get that appointment. Patient encouraged to take his HIV medication Patient will be discharged on Azythromycin 500mg 3days and Cepacol sore throat Plan discussed with patient, all questions addressed and answered. Patient feel comfortable to go home Follow up In HIV clinic within 1 week. Ilana Clifton will contact patient Discharge Exam - Head Exam Head Exam: ATRAUMATIC, NORMAL INSPECTION, NORMOCEPHALIC - Eye Exam Eye Exam: EOMI, Normal appearance, PERRL. absent: Conjunctival injection, Periorbital swelling, Periorbital tenderness Pupil Exam: NORMAL ACCOMODATION, PERRL - Respiratory Exam Respiratory Exam: Clear to PA & Lateral, NORMAL BREATHING PATTERN, UNREMARKABLE - Cardiovascular Exam Cardiovascular Exam: REGULAR RHYTHM, +S1, +S2 - GI/Abdominal Exam GI & Abdominal Exam: Normal Bowel Sounds, Unremarkable. absent: Distended, Rebound, Rigid - Back Exam Back exam: NORMAL INSPECTION, paraspinal tenderness - Neurological Exam Neurological exam: Alert, CN II-XII Intact - Psychiatric Exam Psychiatric exam: Normal Affect, Normal Mood - Skin Skin Exam: Cyanosis, Dry, Intact, Normal Color, Warm Discharge Plan - Follow Up Plan Condition: STABLE Disposition: HOME/ ROUTINE Patient education suggested?: Yes Instructions: HIV/AIDS
[2018-09-11 08:36] LABS: % CD4 (T HELPER CELL) 2 Percent (30-61); % CD8 (SUPPRESSOR T CELL) 61 Percent (12-42); ABSOLUTE CD4 CELLS <20 Cells/mcL (490-1740); ABSOLUTE CD8 CELLS 159 Cells/mcL (180-1170); ABSOLUTE LYMPHOCYTES 261 Cells/mcL (850-3900); HELPER/SUPPRESSOR RATIO 0.03 Ratio (0.86-5.00)
[2018-09-13 13:05] VITALS: O2SAT 100
== END 2018-09-09 17:50 | disposition home or self-care (01) | DRG 714 ==
LOC: H.ER 13:11 → H.ERHOLD 15:06 → H.MEDSURG1 22:02
PROVIDERS: ADMIT Student in an Organized Health Care Education/Training Program; ATTEND Student in an Organized Health Care Education/Training Program
DX: R53.1 Weakness (principal); B20 Human immunodeficiency virus [HIV] disease; B37.81 Candidal esophagitis; B37.0 Candidal stomatitis; F14.10 Cocaine abuse, uncomplicated; F17.200 Nicotine dependence, unspecified, uncomplicated; K59.00 Constipation, unspecified; Z91.14 Patient's other noncompliance with medication regimen

== ENCOUNTER 2018-11-10 09:37 | Emergency (ER) | payer MEDICAID ==
[2018-11-10 09:48] VITALS: BMI 24.3
--- NOTE | 2018-11-10 11:05 | ED PDOC ---
HPI: General Adult Time Seen by Provider: 11/10/18 09:53 Chief Complaint (Nursing): Medical Clearance Chief Complaint (Provider): Medical Clearance History Per: Patient History/Exam Limitations: no limitations Onset/Duration Of Symptoms: Days Current Symptoms Are (Timing): Still Present Additional Complaint(s): 53 year old male with a past medical history of HIV who was brought to the ED under police custody for medical clearance. Patient states that he is not feelin g well and complains of body aches, chills, fatigue, malaise, mouth pain, difficulty swallowing, and white patches in the mouth. He also states that he has intermittent diarrhea but denies any chest pain, cough, vomiting, or abdominal pain. Patient also admits that he is not taking any medications for HIV. Provider reviewed old charts and documents. Of note, patients last CD4 was checked in August and it was less than 20. PMD: clinic Past Medical History Reviewed: Historical Data, Nursing Documentation, Vital Signs Vital Signs: Last Vital Signs Temp 98.6 F 11/10/18 09:50 Pulse 76 11/10/18 09:50 Resp 20 11/10/18 09:50 BP 107/70 11/10/18 09:50 Pulse Ox 96 11/10/18 09:48 - Medical History PMH: Back Problems, HIV (042.9) Denies: Diabetes, Hepatitis, HTN, Chronic Kidney Disease, Seizures, Sexually Transmitted Disease - Surgical History Surgical History: No Surg Hx Other surgeries: nose surgery - Family History Family History: States: Unknown Family Hx - Social History Current smoker - smoking cessation education provided: Yes Alcohol: Other (drinks everyday) Drugs: Cocaine - Home Medications Home Medications: Ambulatory Orders Medication Instructions Recorded RX: Abacavir Sulfate/Lamivudine 1 tab PO DAILY 04/26/18 [Abacavir-Lamivudine 600-300 mg] RX: Famotidine [Pepcid] 20 mg PO BID 30 Days #60 tab 05/06/18 RX: Mirtazapine [Remeron] 15 mg PO HS 30 Days #30 tab 05/06/18 RX: QUEtiapine [Seroquel] 25 mg PO HS 30 Days #30 tab 05/06/18 RX: Azithromycin 500 mg PO DAILY #3 tablet 09/09/18 Benzocaine/Menthol [Cepacol Sore 1 yamilex MM PRN PRN #1 yamilex 11/10/18 Throat] Fluconazole [Diflucan] 100 mg PO DAILY #10 tab 11/10/18 RX: Azithromycin [Zithromax] 1,200 mg PO SUN #30 tab 11/10/18 RX: Dolutegravir Sodium [Tivicay] 50 mg PO DAILY #30 tab 11/10/18 RX: Sulfamethoxazole/Trimethoprim 1 tab PO DAILY #30 tab 11/10/18 [Bactrim DS Tab] - Allergies Allergies/Adverse Reactions: Allergies Allergy/AdvReac Type Severity Reaction Status Date / Time strawberry Allergy Intermediate RASH Verified 09/08/18 13:24 Review of Systems ROS Statement: Except As Marked, All Systems Reviewed And Found Negative Constitutional: Positive for: Chills, Malaise, Other (body aches ) ENT: Positive for: Mouth Pain Cardiovascular: Negative for: Chest Pain Respiratory: Negative for: Cough Gastrointestinal: Positive for: Diarrhea. Negative for: Vomiting, Abdominal Pain Physical Exam - Reviewed Nursing Documentation Reviewed: Yes Vital Signs Reviewed: Yes - Physical Exam Appears: Positive for: Non-toxic, No Acute Distress Head Exam: Positive for: ATRAUMATIC, NORMAL INSPECTION, NORMOCEPHALIC Skin: Positive for: Normal Color, Warm, DRY Eye Exam: Positive for: EOMI, Normal appearance, PERRL ENT: Positive for: Other (diffuse white patches to mouth and posterior pharynx) Cardiovascular/Chest: Positive for: Regular Rate, Rhythm. Negative for: Murmur Respiratory: Positive for: Normal Breath Sounds. Negative for: Respiratory Distress Gastrointestinal/Abdominal: Positive for: Normal Exam, Soft. Negative for: Tenderness Back: Positive for: Normal Inspection. Negative for: L CVA Tenderness, R CVA Tenderness Extremity: Positive for: Normal ROM. Negative for: Deformity, Swelling Neurologic/Psych: Positive for: Alert, Oriented. Negative for: Motor/Sensory Deficits - Laboratory Results Result Diagrams: 11/10/18 10:57 11/10/18 10:57 - ECG O2 Sat by Pulse Oximetry: 96 (RA) Pulse Ox Interpretation: Normal - Progress Re-evaluation Time: 13:11 Condition: Re-examined, Improved Medical Decision Making Medical Decision Making: Time: 10:13 Impression: flu-like symptoms and throat pain Differentials: oral candidacies, AIDS, and AIDS associated syndrome due to incompliance with meds r/o pneumonia Plan: --BMP --CBC --Chest X-Ray --Influenza A B ----- Scribe Attestation: Documented by Ciara Charles, acting as a scribe for Porsche Holt. Provider Scribe Attestation: All medical record entries made by the Scribe were at my direction and personally dictated by me. I have reviewed the chart and agree that the record accurately reflects my personal performance of the history, physical exam, medical decision making, and the department course for this patient. I have also personally directed, reviewed, and agree with the discharge instructions and disposition. Disposition - Clinical Impression Clinical Impression: HIV (human immunodeficiency virus infection), AIDS, Thrush of mouth and esophagus - Patient ED Disposition Is Patient to be Admitted: No Doctor Will See Patient In The: Office Counseled Patient/Family Regarding: Studies Performed, Diagnosis, Need For Followup - Disposition Referrals: Pee Messina MD [Staff Provider] - Disposition: Routine/Home Disposition Time: 13:13 Condition: GOOD Additional Instructions: Patient is medically and psychiatrically stable for incarceration. SHIRLEY HALEY, thank you for letting us take care of you today. Your provider was Porsche Holt MD and you were treated for MEDICAL CLEARANCE. The emergency medical care you received today was directed at your acute symptoms. If you were prescribed any medication, please fill it and take as directed. It may take several days for your symptoms to resolve. Return to the Emergency Department if your symptoms worsen, do not improve, or if you have any other problems. Please contact your doctor or call one of the physicians/clinics you have been referred to that are listed on the Patient Visit Information form that is included in your discharge packet. Bring any paperwork you were given at discharge with you along with any medications you are taking to your follow up visit. Our treatment cannot replace ongoing medical care by a primary care provider outside of the emergency department. Thank you for allowing the [facility] team to be part of your care today. If you had an X-Ray or CT scan: A Radiologist will review the ED reading if any change in treatment is needed we will contact you. If you had a blood, urine, or wound culture: It will take several days for the results, if any change in treatment is needed we will contact you. If you had an STI test: It will take 48 hours for the results. Please call after 1 week if you have not heard back. Prescriptions: RX: Azithromycin [Zithromax] 1,200 mg PO SUN #30 tab Benzocaine/Menthol [Cepacol Sore Throat] 1 yamilex MM PRN PRN #1 yamilex PRN Reason: Pain, Mild (1-3) RX: Dolutegravir Sodium [Tivicay] 50 mg PO DAILY #30 tab Fluconazole [Diflucan] 100 mg PO DAILY #10 tab RX: Sulfamethoxazole/Trimethoprim [Bactrim DS Tab] 1 tab PO DAILY #30 tab Instructions: HIV/AIDS, Thrush (DC)
[2018-11-10 11:13] LABS: BASO % 0.2 % (0.0-2.0); EOS # 0.1 K/uL (0.0-0.7); EOS % 3.4 % (0.0-4.0); LYMPH # 0.3 K/uL (1.0-4.3); LYMPH % 15.1 % (20.0-40.0); MEAN CELL VOLUME 95.8 fl (80.0-94.0); MEAN CORPUSCULAR HEMOGLOBIN 32.1 pg (27.0-31.0); MEAN CORPUSCULAR HGB CONC 33.5 g/dL (33.0-37.0); MONO # 0.6 K/uL (0.0-0.8); MONO % 26.1 % (0.0-10.0); NEUT # 1.2 K/uL (1.8-7.0); NEUT % 55.2 % (50.0-75.0); NRBC % 0.1 % (0.0-0.0); PLATELET COUNT 139 K/uL (130-400); RBC 3.43 Mil/uL (4.40-5.90); WHITE BLOOD COUNT 2.1 K/uL (4.8-10.8)
--- NOTE | 2018-11-10 11:13 | RAD ---
Date of service: 11/10/2018 HISTORY: Chest pain. Fevers. COMPARISON: Comparison made with prior chest radiograph 09/08/2018. TECHNIQUE: Chest PA and lateral FINDINGS: LUNGS: No active pulmonary disease. PLEURA: No significant pleural effusion identified. No pneumothorax apparent. CARDIOVASCULAR: No aortic atherosclerotic calcification present. Normal cardiac size. No pulmonary vascular congestion. OSSEOUS STRUCTURES: No significant abnormalities. VISUALIZED UPPER ABDOMEN: Normal. OTHER FINDINGS: None. IMPRESSION: No active disease.
[2018-11-10 11:27] LABS: BLOOD UREA NITROGEN 15 mg/dl (9-20); CALCIUM 8.6 mg/dL (8.4-10.2); GFR NON-AFRICAN AMERICAN > 60
[2018-11-10 12:38] LABS: LYMPHOCYTE 12 % (20-50); MONOCYTE 20 % (0-10); NEUTROPHIL 68 % (42-75); TOTAL CELLS COUNTED 100
[2018-11-10 12:39] LABS: HYPOCHROMIC SLIGHT; PLATELET ESTIMATE NORMAL (NORMAL)
[2018-11-10 13:35] VITALS: BP 90/60; PULSE 75; RESP 22; TEMP 98.3
[2018-11-11 12:24] VITALS: O2SAT 96
== END 2018-11-10 13:30 ==
LOC: H.ER 09:37
DX: B20 Human immunodeficiency virus [HIV] disease (principal); B37.0 Candidal stomatitis; K20.9 Esophagitis, unspecified; R19.7 Diarrhea, unspecified